=== PATIENT | female | born 1935 | race Caucasian/White ===

== ENCOUNTER → 2016-09-09 | Outpatient (CLI) | payer MEDICARE, OTHER ==
[~2016-09-09] MED LIST: ALBU8.5H2 IH; ALLERGY SHOTS; ASCO-262 PO; ASCO500T20 PO; ASP81TEC PO; ASPI-992 PO; AZIT500T5 PO; CALC-404 PO; CALC-654 PO; CEFD300C3 PO; CETI10CA PO; CHOL10007 PO; DOXY100C2 PO; FLUT16SP22 NS; IBUP-30 PO; LVT.05T PO; MULT-1029 PO; OMEG1CAP51 PO; OMEP20TA7 PO; ONDA8TAB9 PO; PNT40TEC PO; PRD50T PO; PROP10DR9 OU; TETR15DR82 OP; TIOT18CA IH; VITA1CAP PO; VITAMIN C PO; [UNRECOGNIZED DRUG - OTHER] PO; [UNRECOGNIZED DRUG - OTHER] SC
--- OUTSIDE RECORDS SUMMARY | 2016-09-09 13:42 | XMS REPORT | Continuity of Care Document ---
Author Author [facility] Organization [facility] Address Unknown Phone Unavailable Care Team Providers Care Director Economic Name Role Phone АННА GUNTER MD PCP Insurance Providers Payer Name Policy Number Subscriber Name Relationship Wps Medicare [id number] [place] 20 Self / Same As Patient Advance Directives Directive Response Recorded Date/Time Advance Directives Yes 07/04/16 5:35pm Health Care Power of Public Health Clinical Nurse Specialist Y SR TOYIN MALIK [facility] 07/04 5:35pm Organ Donor Yes 07/04/16 5:35pm Resuscitation Status Full Code 07/04/16 5:35pm Chief Complaint and Reason for Visit Chief Complaint GASTROENTERITIS,WEAKNESS Reason for Visit Gastroenteritis General weakness Problems Active Problems Medical Problem Onset Date Status Gastroenteritis Unknown Acute General weakness Unknown Acute Medications Current Home Medications Medication Dose Units Route Directions Days/Qty Instructions Start Date Levothyroxine Sodium 50 Mcg 50 Mcg Oral Daily 03/12/12 Mu-Vits-Min Th/Lycopene/Lutein 1 Each 1 Tab Oral Daily 03/12/12 [place]-3 Fatty Acids/Fish Oil 1 Each 1,000 Mg Oral Daily 03/20/12 Cetirizine Hcl 10 Mg 10 Mg Oral Daily as needed for Allergies Vitamin B Complex 1 Each 1 Cap Oral Daily 07/04/16 Ascorbate Calcium 500 Mg 500 Mg Oral Daily 07/06/16 Propylene Glycol 10 Ml 1 Drop Each Eye Every 4HRS as needed for Dry Eyes 07/06/16 Aspirin/Acetaminophen/Caffeine 1 Each 1 Tab Oral Twice A Day as needed for Pain 07/06/16 Cholecalciferol (Vitamin D3) 1,000 Unit 1,000 Unit Oral Daily Calcium Carbonate/Vitamin D3 1 Each 1 Tab Oral Daily 07/06/16 Fluticasone Propionate 16 Gm 2 Sprays Nasal Daily 07/06/16 Cefdinir (Omnicef) 300 Mg 300 Mg Oral Twice A Day 10 07/08/16 Omeprazole 20 Mg 20 Mg Oral Daily 30 07/08/16 Azithromycin 500 Mg 500 Mg Oral Daily 5 07/08/16 Ondansetron 8 Mg 8 Mg Oral Every 6 Hours as needed for Nausea 20 07/08 Past Home Medications Medication Directions Ordered Status Albuterol 8.5 Gm Hfa.aer.ad, 8.5 Gm Inhalation Every 4HRS as needed 03/12/12 Discontinued Ascorbic Acid 500 Mg Tablet, 500 Mg Oral Daily 03/12/12 Discontinued [Allergy Shots] , 03/12/12 Discontinued Doxycycline Hyclate (Vibramycin) 100 Mg Capsule, 1 Each Oral Twice A Day 08/22 Discontinued Prednisone 50 Mg Tab, 50 Mg Oral Daily 03/12/12 Discontinued [Allergenie Injection] , 2 Unit Subcutaneously 2SHOTS Every 2 Weeks 03/20/12 Discontinued [Vitamin C & D3] 1000 Mg , 1000 Mg Oral Daily 03/20/12 Discontinued Calcium Carbonate/Vitamin D3 1 Each Tablet, 500 Mg Oral Daily 03/20/12 Discontinued Tetrahydrozoline Hcl 15 Ml Drops, 1 Drop Ophthalmic Daily 03/20/12 Discontinued Aspirin 81 Mg Tabec, 81 Mg Oral Daily as needed for Prn 03/27/12 Discontinued Pantoprazole Sod 40 Mg Tab, 40 Mg Oral Daily 03/27/12 Discontinued Tiotropium [place] 18 Mcg Cap.w.dev, 1 Inhaler Inhalation Daily 03/27/12 Discontinued Ibuprofen 200 Mg Tablet, 200 Mg Oral Daily as needed for Pain 07/04/16 Discontinued Social History Social History Problem Response Recorded Date/Time Alcohol Use Denies Use 07/04/2016 5:35pm Recreational Drug Use No 07/04/2016 5:35pm Recent Foreign Travel No 07/04/2016 5:35pm Recent Infectious Disease Exposure No 07/04/2016 5:35pm Smoking Status Never a Smoker 07/04/2016 5:35pm Recent Hopitalizations Y PNEUMONIAS 07/04/2016 5:35pm Query Response Start Date Stop Date Smoking Status Never a Smoker Hospital Discharge Instructions Patient Instructions Physician Instructions New, Converted or Re-Newed RX: Transmitted to Pharmacy Goal/Follow Up Appt: Dr Pineda next week for release to work Discharge Diet: Soft Diet Care Plan Goal:: Dr Pineda next week for release to work Plan of Care Discharge Date 07/08/16 12:20pm Disposition 01 HOME, SELF-CARE Instructions/Education Provided Nausea and Vomiting, Adult Forms Provided PDI Medical Prescriptions See Medication Section Referrals (Unspecified) - Reason(s) for Referral: FOLLOW-UP WITH DR. CASTRO'S OFFICE ON August AT 1:30 P.M. FOLLOW-UP WITH DR. PINEDA'S OFFICE ON July AT 2:00 P.M. MAKE SURE TO BRING INSURANCE CARDS AND PHOTO I.D. Care Plan and Goals See Discharge Instructions Section Functional Status Query Response Date Recorded Patient Orientation Person Place Time Situation Eyes Open July 09, 2016 7:31am Comprehension Ability Understands Concepts July 07, 2016 9:00am Allergies, Adverse Reactions, Alerts No known allergies. Immunizations No immunization records. Vital Signs Acute Vital Signs Vital Response Date/Time Temperature (Fahrenheit) 97.2 degrees F (97.6 - 99.5) 07/08/2016 11:56am Temperature (Calculated Celsius) 36.37892 degrees C (36.4 - 37.5) 07/08/2016 8:00am Temperature Source Tympanic 07/08/2016 11:56am Pulse Rate (adult) 78 bpm (60 - 90) 07/08/2016 11:56am Respiratory Rate 20 bpm (12 - 24) 07/08/2016 11:56am O2 Sat by Pulse Oximetry 93 % (88 - 100) 07/08/2016 11:56am Blood Pressure 117/76 mm Hg 07/08/2016 11:56am Blood Pressure Mean 90 mm Hg 07/08/2016 8:00am Pain Numeric Pain Scale 0-No Pain 07/08/2016 11:56am Height (Feet) 5 feet 07/04/2016 5:44pm Height (Inches) 3.00 inches 07/04/2016 5:44pm Height (Calculated Centimeters) 160.761559 cm 07/04/2016 5:44pm Weight (Pounds) 130 pounds 07/04/2016 5:44pm Weight (Ounces) 4.0 oz 07/04/2016 5:44pm Weight (Calculated Grams) 62619.41 gm 07/04/2016 5:44pm Weight (Calculated Kilograms) 59.166326 kilograms 07/04/2016 5:44pm Calculated BMI 23.1 07/04/2016 5:44pm Capillary Refill Capillary Refill Less Than 3 Seconds 07/07/2016 9:00am Results Laboratory Results Test Name Result Units Flags Reference Collection Date/Time Result Date/ Time Comments White Blood Count 6.2 10^3/uL 4.3-11.0 07/07/2016 5:00am 07/07/2016 6: 14am Red Blood Count 4.39 10^6/uL 4.35-5.85 07/07/2016 5:00am 07/07/2016 6: 14am Hemoglobin 14.1 G/DL 11.5-16.0 07/07/2016 5:00am 07/07/2016 6:14am Hematocrit 42 % 35-52 07/07/2016 5:00am 07/07/2016 6:14am Mean Corpuscular Volume 95 FL 80-99 07/07/2016 5:00am 07/07/2016 6: 14am Mean Corpuscular Hemoglobin 32 PG 25-34 07/07/2016 5:00am 07/07/2016 6: 14am Mean Corpuscular Hemoglobin Concent 34 G/DL 32-36 07/07/2016 5:00am 6:14am Red Cell Distribution Width 12.7 % 10.0-14.5 07/07/2016 5:00am 2015 6:14am Platelet Count 218 10^3/uL 130-400 07/07/2016 5:00am 07/07/2016 6:14am Mean Platelet Volume 11.1 FL H 7.4-10.4 07/07/2016 5:00am 07/07/2016 6: 14am Neutrophils (%) (Auto) 57 % 42-75 07/07/2016 5:00am 07/07/2016 6:14am Lymphocytes (%) (Auto) 23 % 12-44 07/07/2016 5:00am 07/07/2016 6:14am Monocytes (%) (Auto) 12 % 0-12 07/07/2016 5:00am 07/07/2016 6:14am Eosinophils (%) (Auto) 7 % 0-10 07/07/2016 5:00am 07/07/2016 6:14am Basophils (%) (Auto) 1 % 0-10 07/07/2016 5:00am 07/07/2016 6:14am Neutrophils # (Auto) 3.5 X 10^3 1.8-7.8 07/07/2016 5:00am 07/07/2016 6: 14am Lymphocytes # (Auto) 1.5 X 10^3 1.0-4.0 07/07/2016 5:00am 07/07/2016 6: 14am Monocytes # (Auto) 0.7 X 10^3 0.0-1.0 07/07/2016 5:00am 07/07/2016 6: 14am Eosinophils # (Auto) 0.4 10^3/uL H 0.0-0.3 07/07/2016 5:00am 07/07/2016 6 :14am Basophils # (Auto) 0.0 10^3/uL 0.0-0.1 07/07/2016 5:00am 07/07/2016 6: 14am Neutrophils % (Manual) 85 % 07/04/2016 2:05pm 07/04/2016 2:49pm Band Neutrophils 4 % 07/04/2016 2:05pm 07/04/2016 2:49pm Lymphocytes % (Manual) 10 % 07/04/2016 2:05pm 07/04/2016 2:49pm Eosinophils % (Manual) 1 % 07/04/2016 2:05pm 07/04/2016 2:49pm Blood Morphology Comment NORMAL 07/04/2016 2:05pm 07/04/2016 2: 49pm Urine Color YELLOW 07/05/2016 8:15am 07/05/2016 8:36am Urine Clarity CLEAR 07/05/2016 8:15am 07/05/2016 8:36am Urine pH 6.5 5-9 07/05/2016 8:15am 07/05/2016 8:36am Urine Specific Ellis 1.005 * 1.016-1.022 07/05/2016 8:15am 2015 8:36am Urine Protein NEGATIVE NEGATIVE 07/05/2016 8:15am 07/05/2016 8:36am Urine Glucose (UA) NEGATIVE NEGATIVE 07/05/2016 8:15am 07/05/2016 8: 36am Urine RBC (Auto) NEGATIVE NEGATIVE 07/05/2016 8:15am 07/05/2016 8: 36am Urine Ketones NEGATIVE NEGATIVE 07/05/2016 8:15am 07/05/2016 8:36am Urine Nitrite NEGATIVE NEGATIVE 07/05/2016 8:15am 07/05/2016 8:36am Urine Bilirubin NEGATIVE NEGATIVE 07/05/2016 8:15am 07/05/2016 8: 36am Urine Urobilinogen NORMAL MG/DL NORMAL 07/05/2016 8:15am 07/05/2016 8: 36am Urine Leukocyte Esterase NEGATIVE NEGATIVE 07/05/2016 8:15am 2015 8:36am Urine RBC RARE /HPF 07/05/2016 8:15am 07/05/2016 8:36am Urine WBC NONE /HPF 07/05/2016 8:15am 07/05/2016 8:36am Urine Bacteria NEGATIVE /HPF 07/05/2016 8:15am 07/05/2016 8:36am Urine Squamous Epithelial Cells NONE /HPF 07/05/2016 8:15am 2015 8:36am Urine Crystals NONE /LPF 07/05/2016 8:15am 07/05/2016 8:36am Urine Casts NONE /LPF 07/05/2016 8:15am 07/05/2016 8:36am Urine Mucus NEGATIVE /LPF 07/05/2016 8:15am 07/05/2016 8:36am Urine Culture Indicated NO 07/05/2016 8:15am 07/05/2016 8:36am Sodium Level 136 MMOL/L 135-145 07/07/2016 5:00am 07/07/2016 7:05am Potassium Level 4.4 MMOL/L 3.6-5.0 07/07/2016 5:00am 07/07/2016 7:05am Chloride Level 103 MMOL/L 98-107 07/07/2016 5:00am 07/07/2016 7:05am Carbon Dioxide Level 24 MMOL/L 21-32 07/07/2016 5:00am 07/07/2016 7: 05am Anion Gap 9 MMOL/L 5-14 07/07/2016 5:00am 07/07/2016 7:05am Blood Urea Nitrogen 5 MG/DL L 7-18 07/07/2016 5:00am 07/07/2016 7:05am Creatinine 0.70 MG/DL 0.60-1.30 07/07/2016 5:00am 07/07/2016 7:05am BUN/Creatinine Ratio 7 07/07/2016 5:00am 07/07/2016 7:05am Estimat Glomerular Filtration Rate > 60 07/07/2016 5:00am 2015 7:05am GFR INTERPRETIVE DATA UNITS FOR ESTIMATED GFR (eGFR): mL/min/1.73 M2 REFERENCE RANGE FOR ESTIMATED GFR (eGFR) eGFR NORMAL eGFR >60 MODERATELY DECREASED eGFR 30-59 SEVERLY DECREASED eGFR 15-29 KIDNEY FAILURE <15 (OR DIALYSIS) Glucose Level 88 MG/DL 70-105 07/07/2016 5:00am 07/07/2016 7:05am Calcium Level 8.8 MG/DL 8.5-10.1 07/07/2016 5:00am 07/07/2016 7:05am Total Bilirubin 0.3 MG/DL 0.1-1.0 07/07/2016 5:00am 07/07/2016 7:05am Alkaline Phosphatase 69 U/L 40-136 07/07/2016 5:00am 07/07/2016 7:05am Aspartate Amino Transf (AST/SGOT) 28 U/L 5-34 07/07/2016 5:00am 2015 7:05am Alanine Aminotransferase (ALT/SGPT) 21 U/L 0-55 07/07/2016 5:00am 07/07 7:05am B-Type Natriuretic Peptide 55.6 PG/ML <100.0 07/05/2016 9:40am 2015 10:18am Total Protein 5.9 G/DL L 6.4-8.2 07/07/2016 5:00am 07/07/2016 7:05am Albumin 3.7 G/DL 3.2-4.5 07/07/2016 5:00am 07/07/2016 7:05am Lactic Acid Level 1.1 MMOL/L 0.5-2.0 07/04/2016 2:05pm 07/04/2016 2: 34pm Microbiology Results Procedure Source Result Collection Date/Time Result Date/Time Blood Culture Peripheral, Right Wrist No growth 07/04/2016 2:05pm 2015 2:09pm Blood Culture Peripheral, Lt Hand No growth 07/04/2016 2:00pm 07/05/2016 2: 09pm Procedures No known history of procedures. Encounters Encounter Location Arrival/Admit Date Discharge/Depart Date Attending Provider Discharged Inpatient [facility] 07/04/16 5:35pm 12:20pm BRANDO WAY MD Recent Diagnosis Gastroenteritis General weakness
--- NOTE | 2016-09-09 16:03 | Diagnostic Imaging Report ---
PROCEDURE: CT chest without contrast. TECHNIQUE: Multiple contiguous axial images were obtained through the chest without the use of intravenous contrast. INDICATION: Shortness of breath with history of pneumonia. Exam compared 07/05/2016. 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 This is a chronic finding. A few scattered foci of airspace like density in the left upper lobe, right lower lobe laterally and both posterior sulci present on the previous have resolved in the interim. An acute infiltrate or adverse change is not found. No lung mass. No evidence for thoracic adenopathy. No effusion. No chest wall pathology. Visualized upper abdomen unremarkable. IMPRESSION: Chronic changes involve lingula and right middle lobe stable, multifocal patchy infiltrates present on the previous exam have resolved. No acute finding or adverse change. Dictated by: Dictated on workstation # [id number]
== END ==
LOC: RAD 13:38
PROVIDERS: ATTEND Nurse Practitioner Family
DX: R06.00 Dyspnea, unspecified (principal)
CPT/HCPCS: 71250

== ENCOUNTER 2016-10-05 19:55 | Outpatient (CLI) | payer MEDICARE, OTHER | END 2016-10-06 06:05 | disposition home or self-care (01) | LOC: SLEEP 19:55 | PROVIDERS: ATTEND Nurse Practitioner Family | DX: G47.10 Hypersomnia, unspecified (principal); G47.50 Parasomnia, unspecified | CPT/HCPCS: 95810 ==

== ENCOUNTER → 2016-11-05 | Outpatient (CLI) | payer MEDICARE, OTHER ==
[~2016-11-05] MED LIST changes: +RT-ALBUTEROL SULF 2.5 MG/3 ML PRE-MIX VIAL IH ONE
== END ==
LOC: RT 15:29
PROVIDERS: ATTEND Nurse Practitioner Family
DX: J47.9 Bronchiectasis, uncomplicated (principal); R06.00 Dyspnea, unspecified
CPT/HCPCS: 94060; 94640; 94726; 94729

== ENCOUNTER 2017-07-24 10:31 | Emergency (ER) | payer MEDICARE, OTHER ==
[~2017-07-24] VITALS: Ht 160 cm; Wt 59.4 kg
[~2017-07-24 10:31] MED LIST changes: -RT-ALBUTEROL SULF 2.5 MG/3 ML PRE-MIX VIAL IH ONE
--- OUTSIDE RECORDS SUMMARY | 2017-07-24 10:36 | XMS REPORT ---
Author Author VINNIE GREWAL [facility] Address [address] [place] [address] Care Team Providers Care Geoscientist Name Role Phone VINNIE GREWAL Unavailable PROBLEMS Type Condition ICD9-CM Code [id number] Code Onset Dates Condition Status SNOMED Code Problem Allergic rhinitis J30.9 Active 78540587 Problem Acquired hypothyroidism E03.9 Active 106681920 Problem Hearing difficulty of left ear H91.92 Active 207291672 Problem Allergic rhinitis, unspecified allergic rhinitis type J30.9 Active 22193676 Problem Urinary incontinence in female R32 Active 694774264 ALLERGIES No Information SOCIAL HISTORY Never Assessed PLAN OF CARE VITAL SIGNS MEDICATIONS Unknown Medications RESULTS No Results PROCEDURES Procedure Date Ordered Result Body Site IMMUNOTHERAPY INJECTIONS November 22, 2016 IMMUNIZATIONS No Known Immunizations MEDICAL (GENERAL) HISTORY Type Description Date Medical History thyroid Medical History allergies Medical History hot flashes Medical History ruptured ovarian cyst Surgical History tonsillectomy Surgical History hysterectomy 1986 Surgical History ovarian cyst Hospitalization History surgeries Hospitalization History pneumonia and dehydration 07/04/2016
--- OUTSIDE RECORDS SUMMARY | 2017-07-24 10:36 | XMS REPORT ---
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 40335054 Problem Acute upper respiratory infections of unspecified site 465.9 Active 49235820 Problem Pneumonia, organism unspecified 486 Active 834854771 Problem ZOSTAVAX DX V05.8 Active 09406497 Problem Need for prophylactic vaccination and inoculation, Influenza V04.81 Active 994442522 Problem Cough 786.2 Active 04871094 Problem Allergic rhinitis, unspecified allergic rhinitis type J30.9 Active 41441621 Problem Urinary incontinence in female R32 Active 796436876 Problem Allergic rhinitis J30.9 Active 24558940 Problem Allergic rhinitis, cause unspecified 477.9 Active 06137577 Problem Hearing difficulty of left ear H91.92 Active 389149268 Problem Memory loss R41.3 Active 80148005 ALLERGIES Unknown Allergies SOCIAL HISTORY No smoking Hx information available PLAN OF CARE VITAL SIGNS MEDICATIONS Unknown Medications RESULTS No Results PROCEDURES Procedure Date Ordered Related Diagnosis Body Site IMMUNOTHERAPY INJECTIONS Jul 26, 2016 IMMUNIZATIONS No Known Immunizations
--- OUTSIDE RECORDS SUMMARY | 2017-07-24 10:36 | XMS REPORT ---
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 50828879 Problem Acute upper respiratory infections of unspecified site 465.9 Active 99610309 Problem Pneumonia, organism unspecified 486 Active 673580694 Problem ZOSTAVAX DX V05.8 Active 49881317 Problem Need for prophylactic vaccination and inoculation, Influenza V04.81 Active 839579552 Problem Cough 786.2 Active 13884254 Problem Allergic rhinitis, unspecified allergic rhinitis type J30.9 Active 02184226 Problem Urinary incontinence in female R32 Active 316694198 Problem Allergic rhinitis J30.9 Active 01825305 Problem Allergic rhinitis, cause unspecified 477.9 Active 54242102 Problem Hearing difficulty of left ear H91.92 Active 638720972 Problem Memory loss R41.3 Active 01329524 ALLERGIES Substance Reaction Event Type Date Status cat/dog dander/tree/dust Unknown Non Drug Allergy Jul, Active SOCIAL HISTORY No smoking Hx information available PLAN OF CARE Activity Details Follow Up prn Reason: VITAL SIGNS Height 63 in 2016-07-29 Weight 128.0 lbs 2016-07-29 Temperature 97.9 degrees Fahrenheit 2016-07-29 Heart Rate 78 bpm 2016-07-29 Respiratory Rate 20 2016-07-29 Oximetry 97 % 2016-07-29 BMI 22.67 kg/m2 2016-07-29 Blood pressure systolic 124 mmHg 2016-07-29 Blood pressure diastolic 78 mmHg 2016-07-29 MEDICATIONS Medication Instructions Dosage Frequency Start Date End Date Duration Status Meloxicam 7.5 MG Orally Once a day 1 tablet 24h Jul, Jul, 5 days Active PredniSONE 20 MG Orally Once a day 2 tablet 24h Jul, Jul, 5 days Active levothyroxine 25 mcg take 1 tablet (25 mcg) by oral route once daily Feb, Active Fish Oil 1000 MG Orally Once a day 1 capsule 24h Active Centrum Silver Feb, Active Flonase Allergy Relief 50 MCG/ACT Nasally Once a day 1 spray in each nostril 24h Active Tessalon Perles 100 mg 1 capsule by Oral route 3 times per day PRN Sep, Active Omeprazole 20 MG Orally Once a day 2 capsules 24h Active Vitamin B Complex Active Vitamin C 500 MG Active RESULTS Name Result Date Reference Range Xray : Chest (IN HOUSE) 2016-07-29 PROCEDURES Procedure Date Ordered Related Diagnosis Body Site MEASURE BLOOD OXYGEN LEVEL Jul 29, 2016 CHEST X-RAY Jul 29, 2016 Office Visit, Est Pt., Level 3 Jul 29, 2016 [facility] VISIT ESTABLISHED PATIENT Jul 29, 2016 IMMUNIZATIONS No Known Immunizations
--- OUTSIDE RECORDS SUMMARY | 2017-07-24 10:36 | XMS REPORT ---
Author Author ISIDORO RAZA Organization [facility] Address [address] [place] [address] Care Team Providers Care Senior Analyst Developer Name Role Phone ISIDRA RAZAA Unavailable PROBLEMS Type Condition ICD9-CM Code [id number] Code Onset Dates Condition Status SNOMED Code Problem Acute upper respiratory infections of unspecified site 465.9 Active 99433978 Problem Allergic rhinitis, cause unspecified 477.9 Active 27108448 Problem ZOSTAVAX DX V05.8 Active 23347902 Problem Cough 786.2 Active 76756282 Problem Need for prophylactic vaccination and inoculation, Influenza V04.81 Active 478527258 Problem Pneumonia, organism unspecified 486 Active 610550312 Problem Allergic rhinitis, unspecified allergic rhinitis type J30.9 Active 13864908 Problem Memory loss R41.3 Active 75893552 Problem Allergic rhinitis J30.9 Active 80823701 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 60396565 Problem Hearing difficulty of left ear H91.92 Active 516203004 Problem Urinary incontinence in female R32 Active 382120055 ALLERGIES Substance Reaction Event Type Date Status cat/dog dander/tree/dust Unknown Non Drug Allergy Jun, Active SOCIAL HISTORY No smoking Hx information available PLAN OF CARE Activity Details Follow Up prn Reason:emelia VITAL SIGNS Blood pressure systolic 124 mmHg 2016-06-24 Blood pressure diastolic 70 mmHg 2016-06-24 MEDICATIONS Medication Instructions Dosage Frequency Start Date End Date Duration Status Zyrtec Allergy 10 MG Orally Once a day 1 tablet as needed 24h Active Vitamin B Complex Active Fish Oil 1000 MG Orally Once a day 1 capsule 24h Active Centrum Silver Feb, Active levothyroxine 25 mcg take 1 tablet (25 mcg) by oral route once daily Feb, Active Vitamin C 500 MG Active RESULTS No Results PROCEDURES Procedure Date Ordered Related Diagnosis Body Site BITEWINGS - FOUR FILMS Jun 24, 2016 Periodontal maint procedures Jun 24, 2016 Billing Notes on claim Jun 24, 2016 TOPICAL FLUORIDE VARNISH Jun 24, 2016 [employer] Employee/Board adjustment Jun 24, 2016 IMMUNIZATIONS No Known Immunizations
--- OUTSIDE RECORDS SUMMARY | 2017-07-24 10:37 | XMS REPORT ---
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
--- OUTSIDE RECORDS SUMMARY | 2017-07-24 10:37 | XMS REPORT ---
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 88398688 Problem Acute upper respiratory infections of unspecified site 465.9 Active 91362767 Problem Pneumonia, organism unspecified 486 Active 774878677 Problem ZOSTAVAX DX V05.8 Active 26031967 Problem Need for prophylactic vaccination and inoculation, Influenza V04.81 Active 926789339 Problem Cough 786.2 Active 97639455 Problem Allergic rhinitis, unspecified allergic rhinitis type J30.9 Active 84281367 Problem Urinary incontinence in female R32 Active 004288211 Problem Allergic rhinitis J30.9 Active 21262445 Problem Allergic rhinitis, cause unspecified 477.9 Active 60420195 Problem Hearing difficulty of left ear H91.92 Active 004481363 Problem Memory loss R41.3 Active 19417890 ALLERGIES Unknown Allergies SOCIAL HISTORY No smoking Hx information available PLAN OF CARE VITAL SIGNS MEDICATIONS Unknown Medications RESULTS No Results PROCEDURES Procedure Date Ordered Related Diagnosis Body Site IMMUNOTHERAPY INJECTIONS Aug 16, 2016 IMMUNIZATIONS No Known Immunizations
--- OUTSIDE RECORDS SUMMARY | 2017-07-24 10:37 | XMS REPORT ---
Author Author VINNIE GREWAL [facility] Address [address] [place] [address] Care Team Providers Care Boom Boss Name Role Phone VINNIE GREWAL Unavailable PROBLEMS Type Condition ICD9-CM Code ATZ49-TA Code Onset Dates Condition Status SNOMED Code Problem Acquired hypothyroidism E03.9 Active 383798270 Problem Allergic rhinitis, unspecified allergic rhinitis type J30.9 Active 17482487 Problem Urinary incontinence in female R32 Active 968089068 Problem Hearing difficulty of left ear H91.92 Active 728873991 ALLERGIES No Information SOCIAL HISTORY Never Assessed PLAN OF CARE VITAL SIGNS MEDICATIONS No Known Medications RESULTS No Results PROCEDURES Procedure Date Ordered Result Body Site IMMUNOTHERAPY, 2 OR MORE INJECTIONS 2016-09-20 N/A IMMUNOTHERAPY INJECTIONS September 20, 2016 IMMUNIZATIONS No Known Immunizations MEDICAL (GENERAL) HISTORY Type Description Date Medical History thyroid Medical History allergies Medical History hot flashes Medical History ruptured ovarian cyst Surgical History tonsillectomy Surgical History hysterectomy 1986 Surgical History ovarian cyst Hospitalization History surgeries Hospitalization History pneumonia and dehydration 07/04/2016
--- OUTSIDE RECORDS SUMMARY | 2017-07-24 10:37 | XMS REPORT ---
Author Author LORENA HAYES [facility] eClinicalWorks Address Unknown Phone Unavailable Care Team Providers Care Tool And Gauge Inspector Name Role Phone LORENA HAYES CP Unavailable Allergies, Adverse Reactions, Alerts Substance Reaction Event Type N.K.D.A. 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 Problem Need for prophylactic vaccination and inoculation, Influenza V04.81 Active Problem Cough 786.2 Active Problem Acute upper respiratory infections of unspecified site 465.9 Active Problem Pneumonia, organism unspecified 486 Active Medications Medication Code System Code Instructions Start Date End Date Status Dosage Vitamin B Complex [facility] [address] Orally not defined Fish Oil [facility] [address]-57 1000 MG Orally Once a day 1 capsule levothyroxine [facility] 0 25 mcg Feb 29, 2012 take 1 tablet (25 mcg) by oral route once daily Vitamin C [facility] [address] 500 MG Orally not defined PredniSONE [facility] [address]-50 20 MG Orally Once a day Apr 16, 2016 Apr 21, 2016 2 tablet Zyrtec Allergy [facility] [address]-35 10 MG Orally Once a day 1 tablet as needed Centrum Silver [facility] [address]-61 Feb 29, 2012 not defined Azithromycin [facility] [address]-35 250 MG Orally Once a day Apr 16, 2016 Apr 21, 2016 2 tablets on the first day, then 1 tablet daily for 4 days Procedures Procedure Coding System Code Date Office Visit, Est Pt., Level 3 CPT-4 99959 Apr 16, 2016 [facility] VISIT ESTABLISHED PATIENT CPT-4 G0467 Apr 16, 2016 Vital Signs Date/Time: Apr 16, 2016 Cardiac Monitoring Heart Rate 80 bpm Weight 129.2 lbs Height 63 in BMI 22.88 Index Blood Pressure Diastolic 74 mmHg Blood Pressure Systolic 128 mmHg Results No Known Results Summary Purpose eClinicalWorks Submission
--- OUTSIDE RECORDS SUMMARY | 2017-07-24 10:37 | XMS REPORT ---
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 07692824 Problem Acute upper respiratory infections of unspecified site 465.9 Active 14693883 Problem Pneumonia, organism unspecified 486 Active 540592364 Problem ZOSTAVAX DX V05.8 Active 05210246 Problem Need for prophylactic vaccination and inoculation, Influenza V04.81 Active 809434985 Problem Cough 786.2 Active 63816172 Problem Allergic rhinitis, unspecified allergic rhinitis type J30.9 Active 21780115 Problem Urinary incontinence in female R32 Active 698481897 Problem Allergic rhinitis J30.9 Active 61904698 Problem Allergic rhinitis, cause unspecified 477.9 Active 14928536 Problem Hearing difficulty of left ear H91.92 Active 052080138 Problem Memory loss R41.3 Active 78049339 ALLERGIES Unknown Allergies SOCIAL HISTORY No smoking Hx information available PLAN OF CARE VITAL SIGNS MEDICATIONS Unknown Medications RESULTS No Results PROCEDURES Procedure Date Ordered Related Diagnosis Body Site IMMUNOTHERAPY, 2 OR MORE INJECTIONS 2016-04-27 N/A IMMUNOTHERAPY INJECTIONS Apr 27, 2016 IMMUNIZATIONS No Known Immunizations
--- OUTSIDE RECORDS SUMMARY | 2017-07-24 10:37 | XMS REPORT ---
Author EDGAR Gannon Organization [employer] Address Unknown Phone Unavailable Care Team Providers Care Signal Technician Name Role Phone EDGAR NGO CP Unavailable Allergies, Adverse Reactions, Alerts Substance Reaction Event Type N.K.D.A. 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 [address] Orally not defined Flonase Allergy Relief [facility] [address]-43 50 MCG/ACT Nasally Once a day 1 spray in each nostril Centrum Silver [facility] [address]-17 Feb 29, 2012 not defined Vitamin C [facility] [address] 500 MG Orally not defined PredniSONE [facility] [address]-21 20 mg Orally Once a day November 04, 2015November 2 tablets Zyrtec Allergy [facility] [address]-50 10 MG Orally Once a day 1 tablet as needed Fish Oil [facility] [address]-17 1000 MG Orally Once a day 1 capsule levothyroxine [place] 0 25 mcg Feb 29, 2012 take 1 tablet (25 mcg) by oral route once daily Procedures Procedure Coding System Code Date Office Visit, Est Pt., Level 3 CPT-4 04264 November 04, 2015 [facility] VISIT ESTABLISHED PATIENT CPT-4 G0467 November 04, 2015 Vital Signs Date/Time: November 04, 2015 Temperature 98.0 F Weight 132.2 lbs Height 63 in BMI 23.42 Index Blood Pressure Diastolic 72 mmHg Blood Pressure Systolic 112 mmHg Cardiac Monitoring Heart Rate 80 bpm Results No Known Results Summary Purpose eClinicalWorks Submission
--- OUTSIDE RECORDS SUMMARY | 2017-07-24 10:37 | XMS REPORT ---
Author Author VINNIE GREWAL [facility] Address [address] [place] [address] Care Team Providers Care Flow Specialist Name Role Phone VINNIE GREWAL Unavailable PROBLEMS Type Condition ICD9-CM Code QIU74-HQ Code Onset Dates Condition Status SNOMED Code Problem Allergic rhinitis J30.9 Active 91019146 Problem Acquired hypothyroidism E03.9 Active 708172492 Problem Hearing difficulty of left ear H91.92 Active 056795806 Problem Allergic rhinitis, unspecified allergic rhinitis type J30.9 Active 69241230 Problem Urinary incontinence in female R32 Active 855917196 ALLERGIES No Information SOCIAL HISTORY Never Assessed PLAN OF CARE VITAL SIGNS MEDICATIONS Unknown Medications RESULTS No Results PROCEDURES Procedure Date Ordered Result Body Site IMMUNOTHERAPY INJECTIONS December 15, 2016 IMMUNIZATIONS No Known Immunizations MEDICAL (GENERAL) HISTORY Type Description Date Medical History thyroid Medical History allergies Medical History hot flashes Medical History ruptured ovarian cyst Surgical History tonsillectomy Surgical History hysterectomy 1986 Surgical History ovarian cyst Hospitalization History surgeries Hospitalization History pneumonia and dehydration 07/04/2016
--- OUTSIDE RECORDS SUMMARY | 2017-07-24 10:37 | XMS REPORT ---
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
--- OUTSIDE RECORDS SUMMARY | 2017-07-24 10:37 | XMS REPORT ---
Author Author VINNIE GREWAL [facility] Address [address] [place] [address] Care Team Providers Care Shift Superintendent Caustic Cresylate Name Role Phone VINNIE GREWAL Unavailable PROBLEMS Type Condition ICD9-CM Code WRJ62-DI Code Onset Dates Condition Status SNOMED Code Problem Allergic rhinitis J30.9 Active 55975294 Problem Acquired hypothyroidism E03.9 Active 002002079 Problem Hearing difficulty of left ear H91.92 Active 374092238 Problem Allergic rhinitis, unspecified allergic rhinitis type J30.9 Active 84475572 Problem Urinary incontinence in female R32 Active 411478444 ALLERGIES No Information SOCIAL HISTORY Never Assessed PLAN OF CARE VITAL SIGNS MEDICATIONS Unknown Medications RESULTS No Results PROCEDURES Procedure Date Ordered Result Body Site IMMUNOTHERAPY INJECTIONS December 07, 2016 IMMUNIZATIONS No Known Immunizations MEDICAL (GENERAL) HISTORY Type Description Date Medical History thyroid Medical History allergies Medical History hot flashes Medical History ruptured ovarian cyst Surgical History tonsillectomy Surgical History hysterectomy 1986 Surgical History ovarian cyst Hospitalization History surgeries Hospitalization History pneumonia and dehydration 07/04/2016
--- OUTSIDE RECORDS SUMMARY | 2017-07-24 10:37 | XMS REPORT ---
Author Author SIGIFREDO ROJAS [facility] Address [address] [place] [address] Care Team Providers Care Traffic Signal Mechanic Name Role Phone SIGIFREDO ROJAS Unavailable PROBLEMS Type Condition ICD9-CM Code DJB91-LE Code Onset Dates Condition Status SNOMED Code Problem Acquired hypothyroidism E03.9 Active 915724997 Problem Allergic rhinitis, unspecified allergic rhinitis type J30.9 Active 81446410 Problem Urinary incontinence in female R32 Active 181665756 Problem Hearing difficulty of left ear H91.92 Active 582823287 ALLERGIES No Information SOCIAL HISTORY Never Assessed PLAN OF CARE VITAL SIGNS MEDICATIONS No Known Medications RESULTS No Results PROCEDURES Procedure Date Ordered Result Body Site IMMUNOTHERAPY, 2 OR MORE INJECTIONS 2016-09-13 N/A IMMUNOTHERAPY INJECTIONS September 13, 2016 IMMUNIZATIONS No Known Immunizations MEDICAL (GENERAL) HISTORY Type Description Date Medical History thyroid Medical History allergies Medical History hot flashes Medical History ruptured ovarian cyst Surgical History tonsillectomy Surgical History hysterectomy 1986 Surgical History ovarian cyst Hospitalization History surgeries Hospitalization History pneumonia and dehydration 07/04/2016
--- OUTSIDE RECORDS SUMMARY | 2017-07-24 10:37 | XMS REPORT ---
Author Author LORENA HAYES Organization [facility] Address [address] [place] [address] Care Team Providers Care Almond Paste Molder Name Role Phone LORENA HAYES Unavailable PROBLEMS Type Condition ICD9-CM Code KQA77-ET Code Onset Dates Condition Status SNOMED Code Problem Allergic rhinitis J30.9 Active 64128066 Problem Acquired hypothyroidism E03.9 Active 440750089 Problem Hearing difficulty of left ear H91.92 Active 654704513 Problem Allergic rhinitis, unspecified allergic rhinitis type J30.9 Active 80821190 Problem Urinary incontinence in female R32 Active 552066402 ALLERGIES No Information SOCIAL HISTORY Never Assessed PLAN OF CARE VITAL SIGNS MEDICATIONS Unknown Medications RESULTS No Results PROCEDURES Procedure Date Ordered Result Body Site IMMUNOTHERAPY INJECTIONS November 29, 2016 IMMUNIZATIONS No Known Immunizations MEDICAL (GENERAL) HISTORY Type Description Date Medical History thyroid Medical History allergies Medical History hot flashes Medical History ruptured ovarian cyst Surgical History tonsillectomy Surgical History hysterectomy 1987 Surgical History ovarian cyst Hospitalization History surgeries Hospitalization History pneumonia and dehydration 07/04/2016
--- OUTSIDE RECORDS SUMMARY | 2017-07-24 10:37 | XMS REPORT ---
Author Author VINNIE GREWAL [facility] Address [address] [place] [address] Care Team Providers Care Land Acquisition Analyst Name Role Phone VINNIE GREWAL Unavailable PROBLEMS Type Condition ICD9-CM Code EKO86-WY Code Onset Dates Condition Status SNOMED Code Problem Acquired hypothyroidism E03.9 Active 559460989 Problem Allergic rhinitis, unspecified allergic rhinitis type J30.9 Active 87390815 Problem Urinary incontinence in female R32 Active 880180450 Problem Hearing difficulty of left ear H91.92 Active 923393277 ALLERGIES No Information SOCIAL HISTORY Never Assessed PLAN OF CARE VITAL SIGNS MEDICATIONS No Known Medications RESULTS No Results PROCEDURES Procedure Date Ordered Result Body Site IMMUNOTHERAPY, 2 OR MORE INJECTIONS 2016-09-27 N/A IMMUNOTHERAPY INJECTIONS September 27, 2016 IMMUNIZATIONS No Known Immunizations MEDICAL (GENERAL) HISTORY Type Description Date Medical History thyroid Medical History allergies Medical History hot flashes Medical History ruptured ovarian cyst Surgical History tonsillectomy Surgical History hysterectomy 1986 Surgical History ovarian cyst Hospitalization History surgeries Hospitalization History pneumonia and dehydration 07/04/2016
--- OUTSIDE RECORDS SUMMARY | 2017-07-24 10:38 | XMS REPORT ---
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 33287878 Problem Acute upper respiratory infections of unspecified site 465.9 Active 44870378 Problem Pneumonia, organism unspecified 486 Active 522029707 Problem ZOSTAVAX DX V05.8 Active 02146236 Problem Need for prophylactic vaccination and inoculation, Influenza V04.81 Active 309405031 Problem Cough 786.2 Active 59608958 Problem Allergic rhinitis, unspecified allergic rhinitis type J30.9 Active 14781352 Problem Urinary incontinence in female R32 Active 155498096 Problem Allergic rhinitis J30.9 Active 32532500 Problem Allergic rhinitis, cause unspecified 477.9 Active 38338908 Problem Hearing difficulty of left ear H91.92 Active 810890529 Problem Memory loss R41.3 Active 93628564 ALLERGIES Substance Reaction Event Type Date Status cat/dog dander/tree/dust Unknown Non Drug Allergy Jul, Active SOCIAL HISTORY No smoking Hx information available PLAN OF CARE Activity Details Follow Up prn Reason: VITAL SIGNS Height 63 in 2016-08-05 Weight 129.2 lbs 2016-08-05 Temperature 98.7 degrees Fahrenheit 2016-08-05 Heart Rate 82 bpm 2016-08-05 Respiratory Rate 18 2016-08-05 Oximetry on room air:99 % 2016-08-05 BMI 22.88 kg/m2 2016-08-05 Blood pressure systolic 128 mmHg 2016-08-05 Blood pressure diastolic 82 mmHg 2016-08-05 MEDICATIONS Medication Instructions Dosage Frequency Start Date End Date Duration Status Doxycycline Hyclate 100 MG Orally every 12 hrs 1 capsule 12h Jul, Aug, 7 days Active Vitamin B Complex Active Centrum Silver Feb, Active levothyroxine 25 mcg take 1 tablet (25 mcg) by oral route once daily Feb, Active Vitamin C 500 MG Active Fish Oil 1000 MG Orally Once a day 1 capsule 24h Active Benzonatate 100 MG Orally Three times a day 1 capsule 8h Jul, 2 Aug, 2016 7 days Active RESULTS No Results PROCEDURES Procedure Date Ordered Related Diagnosis Body Site MEASURE BLOOD OXYGEN LEVEL Aug 05, 2016 [facility] VISIT ESTABLISHED PATIENT Aug 05, 2016 Office Visit, Est Pt., Level 3 Aug 05, 2016 IMMUNIZATIONS No Known Immunizations
--- OUTSIDE RECORDS SUMMARY | 2017-07-24 10:38 | XMS REPORT ---
Author Author VINNIE GREWAL [facility] Address [address] [place] [address] Care Team Providers Care Buggy Man Name Role Phone VINNIE GREWAL Unavailable PROBLEMS Type Condition ICD9-CM Code YBY68-IC Code Onset Dates Condition Status SNOMED Code Problem Allergic rhinitis J30.9 Active 07946377 Problem Acquired hypothyroidism E03.9 Active 786497529 Problem Hearing difficulty of left ear H91.92 Active 238456413 Problem Allergic rhinitis, unspecified allergic rhinitis type J30.9 Active 51619046 Problem Urinary incontinence in female R32 Active 392907759 ALLERGIES No Information SOCIAL HISTORY Never Assessed PLAN OF CARE VITAL SIGNS MEDICATIONS Unknown Medications RESULTS No Results PROCEDURES Procedure Date Ordered Result Body Site IMMUNOTHERAPY INJECTIONS October 04, 2016 IMMUNIZATIONS No Known Immunizations MEDICAL (GENERAL) HISTORY Type Description Date Medical History thyroid Medical History allergies Medical History hot flashes Medical History ruptured ovarian cyst Surgical History tonsillectomy Surgical History hysterectomy 1987 Surgical History ovarian cyst Hospitalization History surgeries Hospitalization History pneumonia and dehydration 07/04/2016
--- OUTSIDE RECORDS SUMMARY | 2017-07-24 10:38 | XMS REPORT ---
Author Author EDGAR NGO [facility] Address [address] [place] [address] Care Team Providers Care Glassware Engraver Name Role Phone EDGAR NGO Unavailable PROBLEMS Type Condition ICD9-CM Code FNH97-GV Code Onset Dates Condition Status SNOMED Code Problem Acute upper respiratory infections of unspecified site 465.9 Active 85380774 Problem Allergic rhinitis, cause unspecified 477.9 Active 35757732 Problem ZOSTAVAX DX V05.8 Active 72956734 Problem Cough 786.2 Active 22296337 Problem Need for prophylactic vaccination and inoculation, Influenza V04.81 Active 825683274 Problem Pneumonia, organism unspecified 486 Active 831016557 Problem Allergic rhinitis, unspecified allergic rhinitis type J30.9 Active 48288239 Problem Memory loss R41.3 Active 82773963 Problem Allergic rhinitis J30.9 Active 92316977 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
--- OUTSIDE RECORDS SUMMARY | 2017-07-24 10:38 | XMS REPORT ---
Author Author VILLA FERMIN [facility] eClinicalWorks Address Unknown Phone Unavailable Care Team Providers Care Technology Auditor Name Role Phone VILLA FERMIN CP Unavailable Allergies, Adverse Reactions, Alerts Substance Reaction Event Type N.K.D.A. Info Not Available Non Drug Allergy Problems Problem Type Condition Code Onset Dates Condition Status Assessment Allergic rhinitis, unspecified allergic rhinitis type J30.9 Active Assessment Encounter for immunization Z23 Active Problem [...] Instructions Start Date End Date Status Dosage Centrum Silver NDC [address]-05 Feb 29, 2012 not defined Fish Oil NDC [address]-10 1000 MG Orally Once a day 1 capsule levothyroxine NDC 0 25 mcg Feb 29, 2012 take 1 tablet (25 mcg) by oral route once daily Procedures Procedure Coding System Code Date Office Visit, Est Pt., Level 3 CPT-4 58562 May 27, 2015 PCV 13 CPT-4 54155 May 27, 2015 [facility] VISIT ESTABLISHED PATIENT CPT-4 G0467 May 27, 2015 SINGLE IMMUNIZATION ADMIN CPT-4 90438 May 27, 2015 Vital Signs Date/Time: May 27, 2015 Temperature 96.1 F Weight 133.9 lbs Height 63 in BMI 23.72 Index Blood Pressure Diastolic 80 mmHg Blood Pressure Systolic 120 mmHg Cardiac Monitoring Heart Rate 88 bpm Results No Known Results Immunizations Vaccine Administration Date PCV 13 May 27, 2015 Summary Purpose eClinicalWorks Submission
--- OUTSIDE RECORDS SUMMARY | 2017-07-24 10:38 | XMS REPORT ---
Author Author VINNIE GREWAL [facility] Address [address] [place] [address] Care Team Providers Care Home Service Technician Name Role Phone VINNIE GREWAL Unavailable PROBLEMS Type Condition ICD9-CM Code YCA87-WG Code Onset Dates Condition Status SNOMED Code Problem Acquired hypothyroidism E03.9 Active 348161600 Problem Allergic rhinitis, unspecified allergic rhinitis type J30.9 Active 13770219 Problem Urinary incontinence in female R32 Active 727469759 Problem Hearing difficulty of left ear H91.92 Active 510783186 ALLERGIES No Information SOCIAL HISTORY Never Assessed PLAN OF CARE VITAL SIGNS MEDICATIONS No Known Medications RESULTS No Results PROCEDURES Procedure Date Ordered Result Body Site IMMUNOTHERAPY, 2 OR MORE INJECTIONS 2016-09-08 N/A IMMUNOTHERAPY INJECTIONS September 08, 2016 IMMUNIZATIONS No Known Immunizations MEDICAL (GENERAL) HISTORY Type Description Date Medical History thyroid Medical History allergies Medical History hot flashes Medical History ruptured ovarian cyst Surgical History tonsillectomy Surgical History hysterectomy 1986 Surgical History ovarian cyst Hospitalization History surgeries Hospitalization History pneumonia and dehydration 07/04/2016
--- OUTSIDE RECORDS SUMMARY | 2017-07-24 10:38 | XMS REPORT ---
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 Problem Allergic rhinitis, cause unspecified 477.9 Active Problem Allergic rhinitis J30.9 Active Problem Pneumonia, organism unspecified 486 Active Problem Need for prophylactic vaccination and inoculation, Influenza V04.81 Active Problem ZOSTAVAX DX V05.8 Active Problem Acute upper respiratory infections of unspecified site 465.9 Active Medications No Known Medications Procedures Procedure Coding System Code Date IMMUNOTHERAPY INJECTIONS CPT-4 94472 Jun 07, 2016 Results Name Result Date Reference Range Unit Abnormality Flag IMMUNOTHERAPY, 2 OR MORE INJECTIONS Summary Purpose eClinicalWorks Submission
--- OUTSIDE RECORDS SUMMARY | 2017-07-24 10:38 | XMS REPORT ---
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 81219287 Problem Acute upper respiratory infections of unspecified site 465.9 Active 44662803 Problem Pneumonia, organism unspecified 486 Active 655680130 Problem ZOSTAVAX DX V05.8 Active 13967250 Problem Need for prophylactic vaccination and inoculation, Influenza V04.81 Active 908010080 Problem Cough 786.2 Active 28027850 Problem Allergic rhinitis, unspecified allergic rhinitis type J30.9 Active 47094032 Problem Urinary incontinence in female R32 Active 981130597 Problem Allergic rhinitis J30.9 Active 23367464 Problem Allergic rhinitis, cause unspecified 477.9 Active 38629477 Problem Hearing difficulty of left ear H91.92 Active 019496161 Problem Memory loss R41.3 Active 53743493 ALLERGIES Unknown Allergies SOCIAL HISTORY No smoking Hx information available PLAN OF CARE VITAL SIGNS MEDICATIONS Unknown Medications RESULTS No Results PROCEDURES Procedure Date Ordered Related Diagnosis Body Site IMMUNOTHERAPY INJECTIONS Aug 04, 2016 IMMUNIZATIONS No Known Immunizations
--- OUTSIDE RECORDS SUMMARY | 2017-07-24 10:38 | XMS REPORT ---
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9 Active 82704968 Problem ZOSTAVAX DX V05.8 Active 22209096 ALLERGIES Unknown Allergies SOCIAL HISTORY No smoking Hx information available PLAN OF CARE VITAL SIGNS MEDICATIONS Unknown Medications RESULTS No Results PROCEDURES Procedure Date Ordered Related Diagnosis Body Site IMMUNOTHERAPY, 2 OR MORE INJECTIONS 2016-06-21 N/A IMMUNOTHERAPY INJECTIONS Jun 21, 2016 IMMUNIZATIONS No Known Immunizations
--- OUTSIDE RECORDS SUMMARY | 2017-07-24 10:38 | XMS REPORT ---
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 35286359 Problem Acute upper respiratory infections of unspecified site 465.9 Active 20181448 Problem Pneumonia, organism unspecified 486 Active 220362301 Problem ZOSTAVAX DX V05.8 Active 56237072 Problem Need for prophylactic vaccination and inoculation, Influenza V04.81 Active 809051573 Problem Cough 786.2 Active 62690662 Problem Allergic rhinitis, unspecified allergic rhinitis type J30.9 Active 79407944 Problem Urinary incontinence in female R32 Active 312088550 Problem Allergic rhinitis J30.9 Active 95291399 Problem Allergic rhinitis, cause unspecified 477.9 Active 99899997 Problem Hearing difficulty of left ear H91.92 Active 014739429 Problem Memory loss R41.3 Active 73814260 ALLERGIES Unknown Allergies SOCIAL HISTORY No smoking Hx information available PLAN OF CARE VITAL SIGNS MEDICATIONS Unknown Medications RESULTS No Results PROCEDURES No Known procedures IMMUNIZATIONS No Known Immunizations
--- OUTSIDE RECORDS SUMMARY | 2017-07-24 10:38 | XMS REPORT ---
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 61246195 Problem Acute upper respiratory infections of unspecified site 465.9 Active 13005130 Problem Pneumonia, organism unspecified 486 Active 962607964 Problem ZOSTAVAX DX V05.8 Active 73757787 Problem Need for prophylactic vaccination and inoculation, Influenza V04.81 Active 986427946 Problem Cough 786.2 Active 21391436 Problem Allergic rhinitis, unspecified allergic rhinitis type J30.9 Active 02265476 Problem Urinary incontinence in female R32 Active 008640337 Problem Allergic rhinitis J30.9 Active 87275964 Problem Allergic rhinitis, cause unspecified 477.9 Active 27596962 Problem Hearing difficulty of left ear H91.92 Active 702833690 Problem Memory loss R41.3 Active 10872942 ALLERGIES Unknown Allergies SOCIAL HISTORY No smoking Hx information available PLAN OF CARE VITAL SIGNS MEDICATIONS Unknown Medications RESULTS No Results PROCEDURES Procedure Date Ordered Related Diagnosis Body Site IMMUNOTHERAPY, 2 OR MORE INJECTIONS 2016-08-09 N/A IMMUNOTHERAPY INJECTIONS Aug 09, 2016 IMMUNIZATIONS No Known Immunizations
--- OUTSIDE RECORDS SUMMARY | 2017-07-24 10:38 | XMS REPORT ---
Author Author VINNIE GREWAL [facility] Address [address] [place] [address] Care Team Providers Care Manager Chemistry Name Role Phone VINNIE GREWAL Unavailable PROBLEMS Type Condition ICD9-CM Code [id number] Code Onset Dates Condition Status SNOMED Code Problem Acute upper respiratory infections of unspecified site 465.9 Active 39852222 Problem Allergic rhinitis, cause unspecified 477.9 Active 32800841 Problem ZOSTAVAX DX V05.8 Active 04841614 Problem Cough 786.2 Active 87241791 Problem Need for prophylactic vaccination and inoculation, Influenza V04.81 Active 673312622 Problem Pneumonia, organism unspecified 486 Active 897532428 Problem Allergic rhinitis, unspecified allergic rhinitis type J30.9 Active 72306017 Problem Memory loss R41.3 Active 62084517 Problem Allergic rhinitis J30.9 Active 91693942 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 56652911 Problem Hearing difficulty of left ear H91.92 Active 505793899 Problem Urinary incontinence in female R32 Active 405697500 ALLERGIES Substance Reaction Event Type Date Status cat/dog dander/tree/dust Unknown Non Drug Allergy Jun, Active SOCIAL HISTORY No smoking Hx information available PLAN OF CARE Activity Details Follow Up annually for preventive care, sooner for chronic health maintenance Reason: VITAL SIGNS Height 63 in 2016-07-01 Weight 127.8 lbs 2016-07-01 Temperature 98.4 degrees Fahrenheit 2016-07-01 Heart Rate 80 bpm 2016-07-01 Respiratory Rate 20 2016-07-01 BMI 22.64 kg/m2 2016-07-01 Blood pressure systolic 120 mmHg 2016-07-01 Blood pressure diastolic 78 mmHg 2016-07-01 MEDICATIONS Medication Instructions Dosage Frequency Start Date End Date Duration Status levothyroxine 25 mcg take 1 tablet (25 mcg) by oral route once daily Feb, Active Centrum Silver Feb, Active Vitamin B Complex Active Flonase Allergy Relief 50 MCG/ACT Nasally Once a day 1 spray in each nostril 24h Active Fish Oil 1000 MG Orally Once a day 1 capsule 24h Active Tessalon Perles 100 mg 1 capsule by Oral route 3 times per day PRN Sep, Active Vitamin C 500 MG Active RESULTS No Results PROCEDURES Procedure Date Ordered Related Diagnosis Body Site INIT PREV PE LTD DUR 1ST 12 MOS MCR Jul 01, 2016 ANNUAL WELLNES VST; PERSNL PPS INIT Jul 01, 2016 Preventive Care Est Pt. Age 65 and over Jul 01, 2016 ANNUAL WELLNESS VST; PPS SUBSQT VST Jul 01, 2016 IMMUNIZATIONS No Known Immunizations
--- OUTSIDE RECORDS SUMMARY | 2017-07-24 10:40 | XMS REPORT | Continuity of Care Document ---
Author Author [facility] [address] Organization [facility] [address] Address Unknown Phone Unavailable Allergies Active Description Code Type Severity Reaction Onset Reported/Identified Relationship to Patient Clinical Status Yes No Known Drug Allergies [id number] Drug Allergy Unknown N/A 07/04/2016 Medications There is no data. 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 08/20/2010 ROJAS DO, SIGIFREDO K 733.92 CHONDROMALACIA 08/20/2010 ROJAS DO, SIGIFREDO K 733.92 CHONDROMALACIA 08/20/2010 ROJAS DO, SIGIFREDO K 733.92 CHONDROMALACIA 08/20/2010 ROJAS DO, SIGIFREDO K 733.92 CHONDROMALACIA 08/20/2010 ROJAS DO, SIGIFREDO K 733.92 CHONDROMALACIA 08/20/2010 ROJAS DO, SIGIFREDO K 733.92 CHONDROMALACIA 08/20/2010 ROJAS DO, SIGIFREDO K 733.92 CHONDROMALACIA 08/20/2010 ROJAS DO, SIGIFREDO K 733.92 CHONDROMALACIA 08/20/2010 ROJAS DO, SIGIFREDO K 733.92 CHONDROMALACIA 08/20/2010 ROJAS DO, SIGIFREDO K 733.92 CHONDROMALACIA 08/20/2010 ROJAS DO, SIGIFREDO K 733.92 CHONDROMALACIA 08/20/2010 ROJAS DO, SIGIFREDO K 733.92 CHONDROMALACIA 08/20/2010 ROJAS DO, SIGIFREDO K 733.92 CHONDROMALACIA 08/20/2010 ROJAS DO, SIGIFREDO K 733.92 CHONDROMALACIA 08/20/2010 ROJAS DO, SIGIFREDO K 733.92 CHONDROMALACIA 08/20/2010 ROJAS DO, SIGIFREDO K 733.92 CHONDROMALACIA 08/20/2010 ROJAS DO, SIGIFREDO K 733.92 CHONDROMALACIA 08/20/2010 ROJAS DO, SIGIFREDO K 733.92 CHONDROMALACIA 08/20/2010 ROJAS DO, SIGIFREDO K 733.92 CHONDROMALACIA 08/20/2010 ROJAS DO, SIGIFREDO K 733.92 CHONDROMALACIA 08/20/2010 ROJAS DO, SIGIFREDO K 733.92 CHONDROMALACIA 08/20/2010 ROJAS DO, SIGIFREDO K 733.92 CHONDROMALACIA 08/20/2010 ROJAS DO, SIGIFREDO K 733.92 CHONDROMALACIA 08/20/2010 ROJAS DO, SIGIFREDO K 733.92 CHONDROMALACIA 08/20/2010 ROJAS DO, SIGIFREDO K 733.92 CHONDROMALACIA 08/20/2010 ROJAS DO, SIGIFREDO K 733.92 CHONDROMALACIA 08/20/2010 ROJAS DO, SIGIFREDO K 733.92 CHONDROMALACIA 08/20/2010 ROJAS DO, SIGIFREDO K 733.92 CHONDROMALACIA 08/20/2010 ROJAS DO, SIGIFREDO K 733.92 CHONDROMALACIA 08/20/2010 ROJAS DO, SIGIFREDO K 733.92 CHONDROMALACIA 08/20/2010 ROJAS DO, SIGIFREDO K 733.92 CHONDROMALACIA 08/20/2010 ROJAS DO, SIGIFREDO K 733.92 CHONDROMALACIA 08/20/2010 ROJAS DO, SIGIFREDO K 733.92 CHONDROMALACIA 08/20/2010 ROJAS DO, SIGIFREDO K 733.92 CHONDROMALACIA 08/20/2010 ROJAS DO, SIGIFREDO K 733.92 CHONDROMALACIA 08/20/2010 ROJAS DO, SIGIFREDO K 733.92 CHONDROMALACIA 08/20/2010 ROJAS DO, SIGIFREDO K 733.92 CHONDROMALACIA 08/20/2010 ROJAS DO, SIGIFREDO K 733.92 CHONDROMALACIA 08/20/2010 ROJAS DO, SIGIFREDO K 733.92 CHONDROMALACIA 08/20/2010 ROJAS DO, SIGIFREDO K 733.92 CHONDROMALACIA 08/20/2010 ROJAS DO, SIGIFREDO K 733.92 CHONDROMALACIA 08/20/2010 ROJAS DO, SIGIFREDO K 733.92 CHONDROMALACIA 08/20/2010 ROJAS DO, SIGIFREDO K 733.92 CHONDROMALACIA 10/14/2010 995.3 ALLERGY UNSPECIFIED NOT ELSEWHERE CLASSIFIED 10/14/2010 995.3 ALLERGY UNSPECIFIED NOT ELSEWHERE CLASSIFIED 10/14/2010 995.3 ALLERGY UNSPECIFIED NOT ELSEWHERE CLASSIFIED 10/14/2010 995.3 ALLERGY UNSPECIFIED NOT ELSEWHERE CLASSIFIED 10/14/2010 995.3 ALLERGY UNSPECIFIED NOT ELSEWHERE CLASSIFIED 10/14/2010 995.3 ALLERGY UNSPECIFIED NOT ELSEWHERE CLASSIFIED 10/14/2010 995.3 ALLERGY UNSPECIFIED NOT ELSEWHERE CLASSIFIED 10/14/2010 ROJAS DO, SIGIFREDO K 995.3 ALLERGY UNSPECIFIED NOT ELSEWHERE CLASSIFIED 10/14/2010 ROJAS DO, SIGIFREDO K 995.3 ALLERGY UNSPECIFIED NOT ELSEWHERE CLASSIFIED 10/14/2010 ROJAS DO, SIGIFREDO K 995.3 ALLERGY UNSPECIFIED NOT ELSEWHERE CLASSIFIED 10/14/2010 ROJAS DO, SIGIFREDO K 995.3 ALLERGY UNSPECIFIED NOT ELSEWHERE CLASSIFIED 10/14/2010 ROJAS DO, SIGIFREDO K 995.3 ALLERGY UNSPECIFIED NOT ELSEWHERE CLASSIFIED 10/14/2010 ROJAS DO, SIGIFREDO K 995.3 ALLERGY UNSPECIFIED NOT ELSEWHERE CLASSIFIED 10/14/2010 ROJAS DO, SIGIFREDO K 995.3 ALLERGY UNSPECIFIED NOT ELSEWHERE CLASSIFIED 10/14/2010 ROJAS DO, SIGIFREDO K 995.3 ALLERGY UNSPECIFIED NOT ELSEWHERE CLASSIFIED 10/14/2010 ROJAS DO, SIGIFREDO K 995.3 ALLERGY UNSPECIFIED NOT ELSEWHERE CLASSIFIED 10/14/2010 ROJAS DO, SIGIFREDO K 995.3 ALLERGY UNSPECIFIED NOT ELSEWHERE CLASSIFIED 10/14/2010 ROJAS DO, SIGIFREDO K 995.3 ALLERGY UNSPECIFIED NOT ELSEWHERE CLASSIFIED 10/14/2010 ROJAS DO, SIGIFREDO K 995.3 ALLERGY UNSPECIFIED NOT ELSEWHERE CLASSIFIED 10/14/2010 ROJAS DO, SIGIFREDO K 995.3 ALLERGY UNSPECIFIED NOT ELSEWHERE CLASSIFIED 10/14/2010 ROJAS DO, SIGIFREDO K 995.3 ALLERGY UNSPECIFIED NOT ELSEWHERE CLASSIFIED 10/14/2010 ROJSA DO, SIGIFREDO K 995.3 ALLERGY UNSPECIFIED NOT ELSEWHERE CLASSIFIED 10/14/2010 ROJAS DO, SIGIFREDO K 995.3 ALLERGY UNSPECIFIED NOT ELSEWHERE CLASSIFIED 10/14/2010 ROJAS DO, SIGIFREDO K 995.3 ALLERGY UNSPECIFIED NOT ELSEWHERE CLASSIFIED 10/14/2010 ROJAS DO, SIGIFREDO K 995.3 ALLERGY UNSPECIFIED NOT ELSEWHERE CLASSIFIED 10/14/2010 ROJAS DO, SIGIFREDO K 995.3 ALLERGY UNSPECIFIED NOT ELSEWHERE CLASSIFIED 10/14/2010 ROJAS DO, SIGIFREDO K 995.3 ALLERGY UNSPECIFIED NOT ELSEWHERE CLASSIFIED 10/14/2010 ROJAS DO, SIGIFREDO K 995.3 ALLERGY UNSPECIFIED NOT ELSEWHERE CLASSIFIED 10/14/2010 ROJAS DO, SIGIFREDO K 995.3 ALLERGY UNSPECIFIED NOT ELSEWHERE CLASSIFIED 10/14/2010 ROJAS DO, SIGIFREDO K 995.3 ALLERGY UNSPECIFIED NOT ELSEWHERE CLASSIFIED 10/14/2010 ROJAS DO, SIGIFREDO K 995.3 ALLERGY UNSPECIFIED NOT ELSEWHERE CLASSIFIED 10/14/2010 ROJAS DO, SIGIFREDO K 995.3 ALLERGY UNSPECIFIED NOT ELSEWHERE CLASSIFIED 10/14/2010 ROJAS DO, SIGIFREDO K 995.3 ALLERGY UNSPECIFIED NOT ELSEWHERE CLASSIFIED 10/14/2010 ROJAS DO, SIGIFREDO K 995.3 ALLERGY UNSPECIFIED NOT ELSEWHERE CLASSIFIED 10/14/2010 ROJAS DO, SIGIFREDO K 995.3 ALLERGY UNSPECIFIED NOT ELSEWHERE CLASSIFIED 10/14/2010 ROJAS DO, SIGIFREDO K 995.3 ALLERGY UNSPECIFIED NOT ELSEWHERE CLASSIFIED 10/14/2010 ROJAS DO, SIGIFREDO K 995.3 ALLERGY UNSPECIFIED NOT ELSEWHERE CLASSIFIED 10/14/2010 ROJAS DO, SIGIFREDO K 995.3 ALLERGY UNSPECIFIED NOT ELSEWHERE CLASSIFIED 10/14/2010 ROJAS DO, SIGIFREDO K 995.3 ALLERGY UNSPECIFIED NOT ELSEWHERE CLASSIFIED 10/14/2010 ROJAS DO, SIGIFREDO K 995.3 ALLERGY UNSPECIFIED NOT ELSEWHERE CLASSIFIED 10/14/2010 ROJAS DO, SIGIFREDO K 995.3 ALLERGY UNSPECIFIED NOT ELSEWHERE CLASSIFIED 10/14/2010 ROJAS DO, SIGIFREDO K 995.3 ALLERGY UNSPECIFIED NOT ELSEWHERE CLASSIFIED 10/14/2010 ROJAS DO, SIGIFREDO K 995.3 ALLERGY UNSPECIFIED NOT ELSEWHERE CLASSIFIED 10/14/2010 ROJAS DO, SIGIFREDO K 995.3 ALLERGY UNSPECIFIED NOT ELSEWHERE CLASSIFIED 10/14/2010 ROJAS DO, SIGIFREDO K 995.3 ALLERGY UNSPECIFIED NOT ELSEWHERE CLASSIFIED 10/14/2010 ROJAS DO, SIGIFREDO K 995.3 ALLERGY UNSPECIFIED NOT ELSEWHERE CLASSIFIED 10/14/2010 ROJAS DO, SIGIFREDO K 995.3 ALLERGY UNSPECIFIED NOT ELSEWHERE CLASSIFIED 10/14/2010 ROJAS DO, SIGIFREDO K 995.3 ALLERGY UNSPECIFIED NOT ELSEWHERE CLASSIFIED 10/14/2010 ROJAS DO, SIGIFREDO K 995.3 ALLERGY UNSPECIFIED NOT ELSEWHERE CLASSIFIED 10/14/2010 ROJAS DO, SIGIFREDO K 995.3 ALLERGY UNSPECIFIED NOT ELSEWHERE CLASSIFIED 11/16/2010 477.0 ALLERGIC RHINITIS DUE TO POLLEN 11/16/2010 477.0 ALLERGIC RHINITIS DUE TO POLLEN 11/16/2010 477.0 ALLERGIC RHINITIS DUE TO POLLEN 11/16/2010 477.0 ALLERGIC RHINITIS DUE TO POLLEN 11/16/2010 477.0 ALLERGIC RHINITIS DUE TO POLLEN 11/16/2010 477.0 ALLERGIC RHINITIS DUE TO POLLEN 11/16/2010 477.0 ALLERGIC RHINITIS DUE TO POLLEN 11/16/2010 ROJAS DO, SIGIFREDO K 477.0 ALLERGIC RHINITIS DUE TO POLLEN 11/16/2010 ROJAS DO, SIGIFREDO K 477.0 ALLERGIC RHINITIS DUE TO POLLEN 11/16/2010 ROJAS DO, SIGIFREDO K 477.0 ALLERGIC RHINITIS DUE TO POLLEN 11/16/2010 ROJAS DO, SIGIFREDO K 477.0 ALLERGIC RHINITIS DUE TO POLLEN 11/16/2010 ROJAS DO, SIGIFREDO K 477.0 ALLERGIC RHINITIS DUE TO POLLEN 11/16/2010 ROJAS DO, SIGIFREDO K 477.0 ALLERGIC RHINITIS DUE TO POLLEN 11/16/2010 ROJAS DO, SIGIFREDO K 477.0 ALLERGIC RHINITIS DUE TO POLLEN 11/16/2010 ROJAS DO, SIGIFREDO K 477.0 ALLERGIC RHINITIS DUE TO POLLEN 11/16/2010 ROJAS DO, SIGIFREDO K 477.0 ALLERGIC RHINITIS DUE TO POLLEN 11/16/2010 ROJAS DO, SIGIFREDO K 477.0 ALLERGIC RHINITIS DUE TO POLLEN 11/16/2010 ROJAS DO, SIGIFREDO K 477.0 ALLERGIC RHINITIS DUE TO POLLEN 11/16/2010 ROJAS DO, SIGIFREDO K 477.0 ALLERGIC RHINITIS DUE TO POLLEN 11/16/2010 ROJAS DO, SIGIFREDO K 477.0 ALLERGIC RHINITIS DUE TO POLLEN 11/16/2010 ROJAS DO, SIGIFREDO K 477.0 ALLERGIC RHINITIS DUE TO POLLEN 11/16/2010 ROJAS DO, SIGIFREDO K 477.0 ALLERGIC RHINITIS DUE TO POLLEN 11/16/2010 ROJAS DO, SIGIFREDO K 477.0 ALLERGIC RHINITIS DUE TO POLLEN 11/16/2010 ROJAS DO, SIGIFREDO K 477.0 ALLERGIC RHINITIS DUE TO POLLEN 11/16/2010 ROJAS DO, SIGIFREDO K 477.0 ALLERGIC RHINITIS DUE TO POLLEN 11/16/2010 ROJAS DO, SIGIFREDO K 477.0 ALLERGIC RHINITIS DUE TO POLLEN 11/16/2010 ROJAS DO, SIGIFREDO K 477.0 ALLERGIC RHINITIS DUE TO POLLEN 11/16/2010 ROJAS DO, SIGIFREDO K 477.0 ALLERGIC RHINITIS DUE TO POLLEN 11/16/2010 ROJAS DO, SIGIFREDO K 477.0 ALLERGIC RHINITIS DUE TO POLLEN 11/16/2010 ROJAS DO, SIGIFREDO K 477.0 ALLERGIC RHINITIS DUE TO POLLEN 11/16/2010 ROJAS DO, SIGIFREDO K 477.0 ALLERGIC RHINITIS DUE TO POLLEN 11/16/2010 ROJAS DO, SIGIFREDO K 477.0 ALLERGIC RHINITIS DUE TO POLLEN 11/16/2010 ROJAS DO, SIGIFREDO K 477.0 ALLERGIC RHINITIS DUE TO POLLEN 11/16/2010 ROJAS DO, SIGIFREDO K 477.0 ALLERGIC RHINITIS DUE TO POLLEN 11/16/2010 ROJAS DO, SIGIFREDO K 477.0 ALLERGIC RHINITIS DUE TO POLLEN 11/16/2010 ROJAS DO, SIGIFREDO K 477.0 ALLERGIC RHINITIS DUE TO POLLEN 11/16/2010 ROJAS DO, SIGIFREDO K 477.0 ALLERGIC RHINITIS DUE TO POLLEN 11/16/2010 ROJAS DO, SIGIFREDO K 477.0 ALLERGIC RHINITIS DUE TO POLLEN 11/16/2010 ROJAS DO, SIGIFREDO K 477.0 ALLERGIC RHINITIS DUE TO POLLEN 11/16/2010 ROJAS DO, SIGIFREDO K 477.0 ALLERGIC RHINITIS DUE TO POLLEN 11/16/2010 ROJAS DO, SIGIFREDO K 477.0 ALLERGIC RHINITIS DUE TO POLLEN 11/16/2010 ROJAS DO, SIGIFREDO K 477.0 ALLERGIC RHINITIS DUE TO POLLEN 11/16/2010 ROJAS DO, SIGIFREDO K 477.0 ALLERGIC RHINITIS DUE TO POLLEN 11/16/2010 ROJAS DO, SIGIFREDO K 477.0 ALLERGIC RHINITIS DUE TO POLLEN 11/16/2010 ROJAS DO, SIGIFREDO K 477.0 ALLERGIC RHINITIS DUE TO POLLEN 11/16/2010 ROJAS DO, SIGIFREDO K 477.0 ALLERGIC RHINITIS DUE TO POLLEN 11/16/2010 ROJAS DO, SIGIFREDO K 477.0 ALLERGIC RHINITIS DUE TO POLLEN 11/16/2010 ROJAS DO, SIGIFREDO K 477.0 ALLERGIC RHINITIS DUE TO POLLEN 11/16/2010 ROJAS DO, SIGIFREDO K 477.0 ALLERGIC RHINITIS DUE TO POLLEN 11/16/2010 ROJAS DO, SIGIFREDO K 477.0 ALLERGIC RHINITIS DUE TO POLLEN 02/29/2012 486 PNEUMONIA UNSPECIFIED 02/29/2012 486 PNEUMONIA UNSPECIFIED 02/29/2012 486 PNEUMONIA UNSPECIFIED 02/29/2012 486 PNEUMONIA UNSPECIFIED 02/29/2012 486 PNEUMONIA UNSPECIFIED 02/29/2012 486 PNEUMONIA UNSPECIFIED 02/29/2012 486 PNEUMONIA UNSPECIFIED 02/29/2012 ROJAS DO, SIGIFREDO K 486 PNEUMONIA UNSPECIFIED 02/29/2012 ROJAS DO, SIGIFREDO K 486 PNEUMONIA UNSPECIFIED 02/29/2012 ROJAS DO, SIGIFREDO K 486 PNEUMONIA UNSPECIFIED 02/29/2012 ROJAS DO, SIGIFREDO K 486 PNEUMONIA UNSPECIFIED 02/29/2012 ROJAS DO, SIGIFREDO K 486 PNEUMONIA UNSPECIFIED 02/29/2012 ROJAS DO, SIGIFREDO K 486 PNEUMONIA UNSPECIFIED 02/29/2012 ROJAS DO, SIGIFREDO K 486 PNEUMONIA UNSPECIFIED 02/29/2012 ROJAS DO, SIGIFREDO K 486 PNEUMONIA UNSPECIFIED 02/29/2012 ROJAS DO, SIGIFREDO K 486 PNEUMONIA UNSPECIFIED 02/29/2012 ROJAS DO, SIGIFREDO K 486 PNEUMONIA UNSPECIFIED 02/29/2012 ROJAS DO, SIGIFREDO K 486 PNEUMONIA UNSPECIFIED 02/29/2012 ROJAS DO, SIGIFREDO K 486 PNEUMONIA UNSPECIFIED 02/29/2012 ROJAS DO, SIGIFREDO K 486 PNEUMONIA UNSPECIFIED 02/29/2012 ROJAS DO, SIGIFREDO K 486 PNEUMONIA UNSPECIFIED 02/29/2012 ROJAS DO, SIGIFREDO K 486 PNEUMONIA UNSPECIFIED 02/29/2012 ROJAS DO, SIGIFREDO K 486 PNEUMONIA UNSPECIFIED 02/29/2012 ROJAS DO, SIGIFREDO K 486 PNEUMONIA UNSPECIFIED 02/29/2012 ROJAS DO, SIGIFREDO K 486 PNEUMONIA UNSPECIFIED 02/29/2012 ROJAS DO, SIGIFREDO K 486 PNEUMONIA UNSPECIFIED 02/29/2012 ROJAS DO, SIGIFREDO K 486 PNEUMONIA UNSPECIFIED 02/29/2012 ROJAS DO, SIGIFREDO K 486 PNEUMONIA UNSPECIFIED 02/29/2012 ROJAS DO, SIGIFREDO K 486 PNEUMONIA UNSPECIFIED 02/29/2012 ROJAS DO, SIGIFREDO K 486 PNEUMONIA UNSPECIFIED 02/29/2012 ROJAS DO, SIGIFREDO K 486 PNEUMONIA UNSPECIFIED 02/29/2012 ROJAS DO, SIGIFREDO K 486 PNEUMONIA UNSPECIFIED 02/29/2012 ROJAS DO, SIGIFREDO K 486 PNEUMONIA UNSPECIFIED 02/29/2012 ORJAS DO, SIGIFREDO K 486 PNEUMONIA UNSPECIFIED 02/29/2012 ROJAS DO, SIGIFREDO K 486 PNEUMONIA UNSPECIFIED 02/29/2012 ROJAS DO, SIGIFREDO K 486 PNEUMONIA UNSPECIFIED 02/29/2012 ROJAS DO, SIGIFREDO K 486 PNEUMONIA UNSPECIFIED 02/29/2012 ROJAS DO, SIGIFREDO K 486 PNEUMONIA UNSPECIFIED 02/29/2012 ROJAS DO, SIGIFREDO K 486 PNEUMONIA UNSPECIFIED 02/29/2012 ROJAS DO, SIGIFREDO K 486 PNEUMONIA UNSPECIFIED 02/29/2012 ROJAS DO, SIGIFREDO K 486 PNEUMONIA UNSPECIFIED 02/29/2012 ROJAS DO, SIGIFREDO K 486 PNEUMONIA UNSPECIFIED 02/29/2012 ROJAS DO, SIGIFREDO K 486 PNEUMONIA UNSPECIFIED 02/29/2012 ROJAS DO, SIGIFREDO K 486 PNEUMONIA UNSPECIFIED 02/29/2012 ROJAS DO, SIGIFREDO K 486 PNEUMONIA UNSPECIFIED 02/29/2012 ROJAS DO, SIGIFREDO K 486 PNEUMONIA UNSPECIFIED 02/29/2012 ROJAS DO, SIGIFREDO K 486 PNEUMONIA UNSPECIFIED 02/29/2012 ROJAS DO, SIGIFREDO K 486 PNEUMONIA UNSPECIFIED 02/29/2012 ROJAS DO, SIGIFREDO K 486 PNEUMONIA UNSPECIFIED 02/29/2012 ROJAS DO, SIGIFREDO K 486 PNEUMONIA UNSPECIFIED 03/12/2012 Ot 466.0 ACUTE BRONCHITIS 03/12/2012 Ot 786.05 SHORTNESS OF BREATH 03/12/2012 Ot V58.69 OTH MED,LT, CURRENT USE 03/27/2012 Ot 244.9 HYPOTHYROIDISM NOS 03/27/2012 Ot 401.9 HYPERTENSION NOS 03/27/2012 Ot 482.83 PNEUMONIA DUE TO OTHER GRAM-NEGATIVE JULIO 03/27/2012 Ot 494.0 BRONCHIECTASIS W/O ACUTE EXACERBATION 03/27/2012 Ot 786.50 CHEST PAIN NOS 07/05/2012 786.2 cough 07/05/2012 786.2 cough 07/05/2012 786.2 cough 07/05/2012 786.2 cough 07/05/2012 786.2 cough 07/05/2012 786.2 cough 07/05/2012 786.2 cough 07/05/2012 ROJAS DO, SIGIFREDO K 786.2 cough 07/05/2012 ROJAS DO, SIGIFREDO K 786.2 cough 07/05/2012 ROJAS DO, SIGIFREDO K 786.2 cough 07/05/2012 ROJAS DO, SIGIFREDO K 786.2 cough 07/05/2012 ROJAS DO, SIGIFREDO K 786.2 cough 07/05/2012 ROJAS DO, SIGIFREDO K 786.2 cough 07/05/2012 ROJAS DO, SIGIFREDO K 786.2 cough 07/05/2012 ROJAS DO, SIGIFREDO K 786.2 cough 07/05/2012 ROJAS DO, SIGIFREDO K 786.2 cough 07/05/2012 ROJAS DO, SIGIFREDO K 786.2 cough 07/05/2012 ROJAS DO, SIGIFREDO K 786.2 cough 07/05/2012 ROJAS DO, SIGIFREDO K 786.2 cough 07/05/2012 ROJAS DO, SIGIFREDO K 786.2 cough 07/05/2012 ROJAS DO, SIGIFREDO K 786.2 cough 07/05/2012 ROJAS DO, SIGIFREDO K 786.2 cough 07/05/2012 ROJAS DO, SIGIFREDO K 786.2 cough 07/05/2012 ROJAS DO, SIGIFREDO K 786.2 cough 07/05/2012 ROJAS DO, SIGIFREDO K 786.2 cough 07/05/2012 ROJAS DO, SIGIFREDO K 786.2 cough 07/05/2012 ROJAS DO, SIGIFREDO K 786.2 cough 07/05/2012 ROJAS DO, SIGIFREDO K 786.2 cough 07/05/2012 ROJAS DO, SIGIFREDO K 786.2 cough 07/05/2012 ROJAS DO, SIGIFREDO K 786.2 cough 07/05/2012 ROJAS DO, SIGIFREDO K 786.2 cough 07/05/2012 ROJAS DO, SIGIFREDO K 786.2 cough 07/05/2012 ROJAS DO, SIGIFREDO K 786.2 cough 07/05/2012 ROJAS DO, SIGIFREDO K 786.2 cough 07/05/2012 ROJAS DO, SIGIFREDO K 786.2 cough 07/05/2012 ROJAS DO, SIGIFREDO K 786.2 cough 07/05/2012 ROJAS DO, SIGIFREDO K 786.2 cough 07/05/2012 ROJAS DO, SIGIFREDO K 786.2 cough 07/05/2012 ROJAS DO, SIGIFREDO K 786.2 cough 07/05/2012 ROJAS DO, SIGIFREDO K 786.2 cough 07/05/2012 ROJAS DO, SIGIFREDO K 786.2 cough 07/05/2012 ROJAS DO, SIGIFREDO K 786.2 cough 07/05/2012 ROJAS DO, SIGIFREDO K 786.2 cough 07/05/2012 ROJAS DO, SIGIFREDO K 786.2 cough 07/05/2012 ROJAS DO, SIGIFREDO K 786.2 cough 07/05/2012 ROJAS DO, SIGIFREDO K 786.2 cough 07/05/2012 ROJAS DO, SIGIFREDO K 786.2 cough 07/05/2012 ROJAS DO, SIGIFREDO K 786.2 cough 07/05/2012 ROJAS DO, SIGIFREDO K 786.2 cough 07/05/2012 ROJAS DO, SIGIFREDO K 786.2 cough 11/23/2012 465.9 ACUTE UPPER RESPIRATORY INFECTIONS OF UNSPECIFIED SITE 11/23/2012 465.9 ACUTE UPPER RESPIRATORY INFECTIONS OF UNSPECIFIED SITE 11/23/2012 465.9 ACUTE UPPER RESPIRATORY INFECTIONS OF UNSPECIFIED SITE 11/23/2012 465.9 ACUTE UPPER RESPIRATORY INFECTIONS OF UNSPECIFIED SITE 11/23/2012 ROJAS DO, SIGIFREDO K 465.9 ACUTE UPPER RESPIRATORY INFECTIONS OF UNSPECIFIED SITE 11/23/2012 ROAJS DO, SIGIFREDO K 465.9 ACUTE UPPER RESPIRATORY INFECTIONS OF UNSPECIFIED SITE 11/23/2012 ROJAS DO, SIGIFREDO K 465.9 ACUTE UPPER RESPIRATORY INFECTIONS OF UNSPECIFIED SITE 11/23/2012 ROJAS DO, SIGIFREDO K 465.9 ACUTE UPPER RESPIRATORY INFECTIONS OF UNSPECIFIED SITE 11/23/2012 ROJAS DO, SIGIFREDO K 465.9 ACUTE UPPER RESPIRATORY INFECTIONS OF UNSPECIFIED SITE 11/23/2012 ROJAS DO, SIGIFREDO K 465.9 ACUTE UPPER RESPIRATORY INFECTIONS OF UNSPECIFIED SITE 11/23/2012 ROJAS DO, SIGIFREDO K 465.9 ACUTE UPPER RESPIRATORY INFECTIONS OF UNSPECIFIED SITE 11/23/2012 ROJAS DO, SIGIFREDO K 465.9 ACUTE UPPER RESPIRATORY INFECTIONS OF UNSPECIFIED SITE 11/23/2012 ROJAS DO, SIGIFREDO K 465.9 ACUTE UPPER RESPIRATORY INFECTIONS OF UNSPECIFIED SITE 11/23/2012 ROJAS DO, SIGIFREDO K 465.9 ACUTE UPPER RESPIRATORY INFECTIONS OF UNSPECIFIED SITE 11/23/2012 ROJAS DO, SIGIFREDO K 465.9 ACUTE UPPER RESPIRATORY INFECTIONS OF UNSPECIFIED SITE 11/23/2012 ROJAS DO, SIGIFREDO K 465.9 ACUTE UPPER RESPIRATORY INFECTIONS OF UNSPECIFIED SITE 11/23/2012 ROJAS DO, SIGIFREDO K 465.9 ACUTE UPPER RESPIRATORY INFECTIONS OF UNSPECIFIED SITE 11/23/2012 ROJAS DO, SIGIFREDO K 465.9 ACUTE UPPER RESPIRATORY INFECTIONS OF UNSPECIFIED SITE 11/23/2012 ROJAS DO, SIGIFREDO K 465.9 ACUTE UPPER RESPIRATORY INFECTIONS OF UNSPECIFIED SITE 11/23/2012 ROJAS DO, SIGIFREDO K 465.9 ACUTE UPPER RESPIRATORY INFECTIONS OF UNSPECIFIED SITE 11/23/2012 ROJAS DO, SIGIFREDO K 465.9 ACUTE UPPER RESPIRATORY INFECTIONS OF UNSPECIFIED SITE 11/23/2012 ROJAS DO, SIGIFREDO K 465.9 ACUTE UPPER RESPIRATORY INFECTIONS OF UNSPECIFIED SITE 11/23/2012 ROJAS DO, SIGIFREDO K 465.9 ACUTE UPPER RESPIRATORY INFECTIONS OF UNSPECIFIED SITE 11/23/2012 ROJAS DO, SIGIFREDO K 465.9 ACUTE UPPER RESPIRATORY INFECTIONS OF UNSPECIFIED SITE 11/23/2012 ROJAS DO, SIGIFREDO K 465.9 ACUTE UPPER RESPIRATORY INFECTIONS OF UNSPECIFIED SITE 11/23/2012 ROJAS DO, SIGIFREDO K 465.9 ACUTE UPPER RESPIRATORY INFECTIONS OF UNSPECIFIED SITE 11/23/2012 ROJAS DO, SIGIFREDO K 465.9 ACUTE UPPER RESPIRATORY INFECTIONS OF UNSPECIFIED SITE 11/23/2012 ROJAS DO, SIGIFREDO K 465.9 ACUTE UPPER RESPIRATORY INFECTIONS OF UNSPECIFIED SITE 11/23/2012 ROJAS DO, SIGIFREDO K 465.9 ACUTE UPPER RESPIRATORY INFECTIONS OF UNSPECIFIED SITE 11/23/2012 ROJAS DO, SIGIFREDO K 465.9 ACUTE UPPER RESPIRATORY INFECTIONS OF UNSPECIFIED SITE 11/23/2012 ROJAS DO, SIGIFREDO K 465.9 ACUTE UPPER RESPIRATORY INFECTIONS OF UNSPECIFIED SITE 11/23/2012 ROJAS DO, SIGIFREDO K 465.9 ACUTE UPPER RESPIRATORY INFECTIONS OF UNSPECIFIED SITE 11/23/2012 ROJAS DO, SIGIFREDO K 465.9 ACUTE UPPER RESPIRATORY INFECTIONS OF UNSPECIFIED SITE 11/23/2012 ROJAS DO, SIGIFREDO K 465.9 ACUTE UPPER RESPIRATORY INFECTIONS OF UNSPECIFIED SITE 11/23/2012 ROJAS DO, SIGIFREDO K 465.9 ACUTE UPPER RESPIRATORY INFECTIONS OF UNSPECIFIED SITE 11/23/2012 ROJAS DO, SIGIFREDO K 465.9 ACUTE UPPER RESPIRATORY INFECTIONS OF UNSPECIFIED SITE 11/23/2012 ROJAS DO, SIGIFREDO K 465.9 ACUTE UPPER RESPIRATORY INFECTIONS OF UNSPECIFIED SITE 11/23/2012 ROJAS DO, SIGIFREDO K 465.9 ACUTE UPPER RESPIRATORY INFECTIONS OF UNSPECIFIED SITE 11/23/2012 ROJAS DO, SIGIFREDO K 465.9 ACUTE UPPER RESPIRATORY INFECTIONS OF UNSPECIFIED SITE 11/23/2012 ROJAS DO, SIGIFREDO K 465.9 ACUTE UPPER RESPIRATORY INFECTIONS OF UNSPECIFIED SITE 11/23/2012 ROJAS DO, SIGIFREDO K 465.9 ACUTE UPPER RESPIRATORY INFECTIONS OF UNSPECIFIED SITE 11/23/2012 ROJAS DO, SIGIFREDO K 465.9 ACUTE UPPER RESPIRATORY INFECTIONS OF UNSPECIFIED SITE 11/23/2012 ROJAS DO, SIGIFREDO K 465.9 ACUTE UPPER RESPIRATORY INFECTIONS OF UNSPECIFIED SITE 11/23/2012 ROJAS DO, SIGIFREDO K 465.9 ACUTE UPPER RESPIRATORY INFECTIONS OF UNSPECIFIED SITE 11/23/2012 ROJAS DO, SIGIFREDO K 465.9 ACUTE UPPER RESPIRATORY INFECTIONS OF UNSPECIFIED SITE 11/23/2012 ROJAS DO, SIGIFREDO K 465.9 ACUTE UPPER RESPIRATORY INFECTIONS OF UNSPECIFIED SITE 11/23/2012 ROJAS DO, SIGIFREDO K 465.9 ACUTE UPPER RESPIRATORY INFECTIONS OF UNSPECIFIED SITE 03/13/2013 477.9 ALLERGIC RHINITIS CAUSE UNSPECIFIED 03/13/2013 ROJAS DO, SIGIFREDO K 477.9 ALLERGIC RHINITIS CAUSE UNSPECIFIED 03/13/2013 ROJAS DO, SIGIFREDO K 477.9 ALLERGIC RHINITIS CAUSE UNSPECIFIED 03/13/2013 ROJAS DO, SIGIFREDO K 477.9 ALLERGIC RHINITIS CAUSE UNSPECIFIED 03/13/2013 ROJAS DO, SIGIFREDO K 477.9 ALLERGIC RHINITIS CAUSE UNSPECIFIED 03/13/2013 ROJAS DO, SIGIFREDO K 477.9 ALLERGIC RHINITIS CAUSE UNSPECIFIED 03/13/2013 ROJAS DO, SIGIFREDO K 477.9 ALLERGIC RHINITIS CAUSE UNSPECIFIED 03/13/2013 ROJAS DO, SIGIFREDO K 477.9 ALLERGIC RHINITIS CAUSE UNSPECIFIED 03/13/2013 ROJAS DO, SIGIFREDO K 477.9 ALLERGIC RHINITIS CAUSE UNSPECIFIED 03/13/2013 ROJAS DO, SIGIFREDO K 477.9 ALLERGIC RHINITIS CAUSE UNSPECIFIED 03/13/2013 ROJAS DO, SIGIFREDO K 477.9 ALLERGIC RHINITIS CAUSE UNSPECIFIED 03/13/2013 ROJAS DO, SIGIFREDO K 477.9 ALLERGIC RHINITIS CAUSE UNSPECIFIED 03/13/2013 ROJAS DO, SIGIFREDO K 477.9 ALLERGIC RHINITIS CAUSE UNSPECIFIED 03/13/2013 ROJAS DO, SIGIFREDO K 477.9 ALLERGIC RHINITIS CAUSE UNSPECIFIED 03/13/2013 ROJAS DO, SIGIFREDO K 477.9 ALLERGIC RHINITIS CAUSE UNSPECIFIED 03/13/2013 ROJAS DO, SIGIFREDO K 477.9 ALLERGIC RHINITIS CAUSE UNSPECIFIED 03/13/2013 ROJAS DO, SIGIFREDO K 477.9 ALLERGIC RHINITIS CAUSE UNSPECIFIED 03/13/2013 ROJAS DO, SIGIFREDO K 477.9 ALLERGIC RHINITIS CAUSE UNSPECIFIED 03/13/2013 ROJAS DO, SIGIFREDO K 477.9 ALLERGIC RHINITIS CAUSE UNSPECIFIED 03/13/2013 ROJAS DO, SIGIFREDO K 477.9 ALLERGIC RHINITIS CAUSE UNSPECIFIED 03/13/2013 ROJAS DO, SIGIFREDO K 477.9 ALLERGIC RHINITIS CAUSE UNSPECIFIED 03/13/2013 ROJAS DO, SIGIFREDO K 477.9 ALLERGIC RHINITIS CAUSE UNSPECIFIED 03/13/2013 ROJAS DO, SIGIFREDO K 477.9 ALLERGIC RHINITIS CAUSE UNSPECIFIED 03/13/2013 ROJAS DO, SIGIFREDO K 477.9 ALLERGIC RHINITIS CAUSE UNSPECIFIED 03/13/2013 ROJAS DO, SIGIFREDO K 477.9 ALLERGIC RHINITIS CAUSE UNSPECIFIED 03/13/2013 ROJAS DO, SIGIFREDO K 477.9 ALLERGIC RHINITIS CAUSE UNSPECIFIED 03/13/2013 ROJAS DO, SIGIFREDO K 477.9 ALLERGIC RHINITIS CAUSE UNSPECIFIED 03/13/2013 ROJAS DO, SIGIFREDO K 477.9 ALLERGIC RHINITIS CAUSE UNSPECIFIED 03/13/2013 ROJAS DO, SIGIFREDO K 477.9 ALLERGIC RHINITIS CAUSE UNSPECIFIED 03/13/2013 ROJAS DO, SIGIFREDO K 477.9 ALLERGIC RHINITIS CAUSE UNSPECIFIED 03/13/2013 ROJAS DO, SIGIFREDO K 477.9 ALLERGIC RHINITIS CAUSE UNSPECIFIED 03/13/2013 ROJAS DO, SIGIFREDO K 477.9 ALLERGIC RHINITIS CAUSE UNSPECIFIED 03/13/2013 ROJAS DO, SIGIFREDO K 477.9 ALLERGIC RHINITIS CAUSE UNSPECIFIED 03/13/2013 ROJAS DO, SIGIFREDO K 477.9 ALLERGIC RHINITIS CAUSE UNSPECIFIED 03/13/2013 ROJAS DO, SIGIFREDO K 477.9 ALLERGIC RHINITIS CAUSE UNSPECIFIED 03/13/2013 ROJAS DO, SIGIFREDO K 477.9 ALLERGIC RHINITIS CAUSE UNSPECIFIED 03/13/2013 ROJAS DO, SIGIFREDO K 477.9 ALLERGIC RHINITIS CAUSE UNSPECIFIED 03/13/2013 ROJAS DO, SIGIFREDO K 477.9 ALLERGIC RHINITIS CAUSE UNSPECIFIED 03/13/2013 ROJAS DO, SIGIFREDO K 477.9 ALLERGIC RHINITIS CAUSE UNSPECIFIED 03/13/2013 ROJAS DO, SIGIFREDO K 477.9 ALLERGIC RHINITIS CAUSE UNSPECIFIED 03/13/2013 ROJAS DO, SIGIFREDO K 477.9 ALLERGIC RHINITIS CAUSE UNSPECIFIED 03/13/2013 ROJAS DO, SIGIFREDO K 477.9 ALLERGIC RHINITIS CAUSE UNSPECIFIED 03/13/2013 ROJAS DO, SIGIFREDO K 477.9 ALLERGIC RHINITIS CAUSE UNSPECIFIED 03/13/2013 ROJAS DO, SIGIFREDO K 477.9 ALLERGIC RHINITIS CAUSE UNSPECIFIED 05/02/2013 ROJAS DO, SIGIFREDO K V04.81 FLU SHOT 05/02/2013 ROJAS DO, SIGIFREDO K V04.81 FLU SHOT 05/02/2013 ROJAS DO, SIGIFREDO K V04.81 FLU SHOT 05/02/2013 ROJAS DO, SIGIFREDO K V04.81 FLU SHOT 05/02/2013 ROJAS DO, SIGIFREDO K V04.81 FLU SHOT 05/02/2013 ROJAS DO, SIGIFREDO K V04.81 FLU SHOT 05/02/2013 ROJAS DO, SIGIFREDO K V04.81 FLU SHOT 05/02/2013 ROJAS DO, SIGIFREDO K V04.81 FLU SHOT 05/02/2013 ROJAS DO, SIGIFREDO K V04.81 FLU SHOT 05/02/2013 ROJAS DO, SIGIFREDO K V04.81 FLU SHOT 05/02/2013 ROJAS DO, SIGIFREDO K V04.81 FLU SHOT 05/02/2013 ROJAS DO, SIGIFREDO K V04.81 FLU SHOT 05/02/2013 ROJAS DO, SIGIFREDO K V04.81 FLU SHOT 05/02/2013 ROJAS DO, SIGIFREDO K V04.81 FLU SHOT 05/02/2013 ROJAS DO, SIIGFREDO K V04.81 FLU SHOT 05/02/2013 ROJAS DO, SIGIFREDO K V04.81 FLU SHOT 05/02/2013 ROJAS DO, SIGIFREDO K V04.81 FLU SHOT 05/02/2013 ROJAS DO, SIGIFREDO K V04.81 FLU SHOT 05/02/2013 ROJAS DO, SIGIFREDO K V04.81 FLU SHOT 05/02/2013 ROJAS DO, SIGIFREDO K V04.81 FLU SHOT 05/02/2013 ROJAS DO, SIGIFREDO K V04.81 FLU SHOT 05/02/2013 ROJAS DO, SIGIFREDO K V04.81 FLU SHOT 05/02/2013 ROJAS DO, SIGIFREDO K V04.81 FLU SHOT 05/02/2013 ROJAS DO, SIGIFREDO K V04.81 FLU SHOT 05/02/2013 ROJAS DO, SIGIFREDO K V04.81 FLU SHOT 05/02/2013 ROJAS DO, SIGIFREDO K V04.81 FLU SHOT 05/02/2013 ROJAS DO, SIGIFREDO K V04.81 FLU SHOT 05/02/2013 ROJAS DO, SIGIFREDO K V04.81 FLU SHOT 05/02/2013 ROJAS DO, SIGIFREDO K V04.81 FLU SHOT 05/02/2013 ROJAS DO, SIGIFREDO K V04.81 FLU SHOT 05/02/2013 ROJAS DO, SIGIFREDO K V04.81 FLU SHOT 05/02/2013 ROJAS DO, SIGIFREDO K V04.81 FLU SHOT 05/02/2013 ROJAS DO, SIGIFREDO K V04.81 FLU SHOT 05/02/2013 ROJAS DO, SIGIFREDO K V04.81 FLU SHOT 05/02/2013 ROJAS DO, SIGIFREDO K V04.81 FLU SHOT 05/02/2013 ROJAS DO, SIGIFREDO K V04.81 FLU SHOT 05/02/2013 ROJAS DO, SIGIFREDO K V04.81 FLU SHOT 05/02/2013 ROJAS DO, SIGIFREDO K V04.81 FLU SHOT 05/02/2013 ROJAS DO, SIGIFREDO K V04.81 FLU SHOT 05/02/2013 ROJAS DO, SIGIFREDO K V04.81 FLU SHOT 05/02/2013 ROJAS DO, SIGIFREDO K V04.81 FLU SHOT 09/12/2013 ROJAS DO, SIGIFREDO K V05.8 ZOSTAVAX DX 09/12/2013 ROJAS DO, SIGIFREDO K V05.8 ZOSTAVAX DX 09/12/2013 ROJAS DO, SIGIFREDO K V05.8 ZOSTAVAX DX 09/12/2013 ROJAS DO, SIGIFREDO K V05.8 ZOSTAVAX DX 09/12/2013 ROJAS DO, SIGIFREDO K V05.8 ZOSTAVAX DX 09/12/2013 ROJAS DO, SIGIFREDO K V05.8 ZOSTAVAX DX 09/12/2013 ROJAS DO, SIGIFREDO K V05.8 ZOSTAVAX DX 09/12/2013 ROJAS DO, SIGIFREDO K V05.8 ZOSTAVAX DX 09/12/2013 ROJAS DO, SIGIFREDO K V05.8 ZOSTAVAX DX 09/12/2013 ROJAS DO, SIGIFREDO K V05.8 ZOSTAVAX DX 09/12/2013 ROJAS DO, SIGIFREDO K V05.8 ZOSTAVAX DX 09/12/2013 ROJAS DO, SIGIFREDO K V05.8 ZOSTAVAX DX 09/12/2013 ROJAS DO, SIGIFREDO K V05.8 ZOSTAVAX DX 09/12/2013 ROJAS DO, SIGIFREDO K V05.8 ZOSTAVAX DX 09/12/2013 ROJAS DO, SIGIFREDO K V05.8 ZOSTAVAX DX 09/12/2013 ROJAS DO, SIGIFREDO K V05.8 ZOSTAVAX DX 09/12/2013 ROJAS DO, SIGIFREDO K V05.8 ZOSTAVAX DX 09/12/2013 ROJAS DO, SIGIFREDO K V05.8 ZOSTAVAX DX 09/12/2013 ROJAS DO, SIGIFREDO K V05.8 ZOSTAVAX DX 09/12/2013 ROJAS DO, SIGIFREDO K V05.8 ZOSTAVAX DX 09/12/2013 ROJAS DO, SIGIFREDO K V05.8 ZOSTAVAX DX 09/12/2013 ROJAS DO, SIGIFREDO K V05.8 ZOSTAVAX DX 09/12/2013 ROJAS DO, SIGIFREDO K V05.8 ZOSTAVAX DX 09/12/2013 ROJAS DO, SIGIFREDO K V05.8 ZOSTAVAX DX 09/12/2013 ROJAS DO, SIGIFREDO K V05.8 ZOSTAVAX DX 09/12/2013 ROJAS DO, SIGIFREDO K V05.8 ZOSTAVAX DX 09/12/2013 ROJAS DO, SIGIFREDO K V05.8 ZOSTAVAX DX 09/12/2013 ROJAS DO, SIGIFREDO K V05.8 ZOSTAVAX DX 09/12/2013 ROJAS DO, SIGIFREDO K V05.8 ZOSTAVAX DX 09/12/2013 ROJAS DO, SIGIFREDO K V05.8 ZOSTAVAX DX 09/12/2013 ROJAS DO, SIGIFREDO K V05.8 ZOSTAVAX DX 09/12/2013 ROJAS DO, SIGIFREDO K V05.8 ZOSTAVAX DX 09/12/2013 ROJAS DO, SIGIFREDO K V05.8 ZOSTAVAX DX 11/08/2013 ROJAS DO, SIGIFREDO K 733.92 CHONDROMALACIA 11/08/2013 ROJAS DO, SIGIFREDO K 733.92 CHONDROMALACIA 11/08/2013 ROJAS DO, SIGIFREDO K 733.92 CHONDROMALACIA 11/08/2013 ROJAS DO, SIGIFREDO K 733.92 CHONDROMALACIA 11/08/2013 ROJAS DO, SIGIFREDO K 733.92 CHONDROMALACIA 11/08/2013 ROJAS DO, SIGIFREDO K 733.92 CHONDROMALACIA 11/08/2013 ROJAS DO, SIGIFREDO K 733.92 CHONDROMALACIA 11/08/2013 ROJAS DO, SIGIFREDO K 733.92 CHONDROMALACIA 11/08/2013 ROJAS DO, SIGIFREDO K 733.92 CHONDROMALACIA 11/08/2013 ROJAS DO, SIGIFREDO K 733.92 CHONDROMALACIA 11/08/2013 ROJAS DO, SIGIFREDO K 733.92 CHONDROMALACIA 11/08/2013 ROJAS DO, SIGIFREDO K 733.92 CHONDROMALACIA 11/08/2013 ROJAS DO, SIGIFREDO K 733.92 CHONDROMALACIA 11/08/2013 ROJAS DO, SIGIFREDO K 733.92 CHONDROMALACIA 11/08/2013 ROJAS DO, SIGIFREDO K 733.92 CHONDROMALACIA 11/08/2013 ROJAS DO, SIGIFREDO K 733.92 CHONDROMALACIA 11/08/2013 ROJAS DO, SIGIFREDO K 733.92 CHONDROMALACIA 11/08/2013 ROJAS DO, SIGIFREDO K 733.92 CHONDROMALACIA 11/08/2013 ROJAS DO, SIGIFREDO K 733.92 CHONDROMALACIA 11/08/2013 ROJAS DO, SIGIFREDO K 733.92 CHONDROMALACIA 11/08/2013 ROJAS DO, SIGIFREDO K 733.92 CHONDROMALACIA 11/08/2013 ROJAS DO, SIGIFREDO K 733.92 CHONDROMALACIA 11/08/2013 ROJAS DO, SIGIFREDO K 733.92 CHONDROMALACIA 04/19/2016 Ot V76.12 OTH SCREEN MAMMO-MALIGN NEOPLASM OF [place] 04/19/2016 Ot 486 PNEUMONIA, ORGANISM NOS 04/19/2016 Ot 780.79 OTH MALAISE FATIGUE 04/19/2016 Ot 719.40 JOINT PAIN- UNSPEC 04/19/2016 Ot 780.79 OTH MALAISE FATIGUE 04/19/2016 RUBIN CERRATO, SHOSHANA R Ot V76.12 OTH SCREEN MAMMO-MALIGN NEOPLASM OF [place] 04/19/2016 SHOSHANA CONKLIN MD R Ot V76.12 OTH SCREEN MAMMO-MALIGN NEOPLASM OF [place] 04/20/2016 Ot V76.12 OTH SCREEN MAMMO-MALIGN NEOPLASM OF [place] 04/20/2016 Ot 486 PNEUMONIA, ORGANISM NOS 04/20/2016 Ot 780.79 OTH MALAISE FATIGUE 04/20/2016 Ot 719.40 JOINT PAIN- UNSPEC 04/20/2016 Ot 780.79 OTH MALAISE FATIGUE 04/20/2016 SHOSHANA CONKLIN MD R Ot V76.12 OTH SCREEN MAMMO-MALIGN NEOPLASM OF [place] 04/20/2016 SHOSHANA CONKLIN MD R Ot V76.12 OTH SCREEN MAMMO-MALIGN NEOPLASM OF [place] 04/20/2016 TEO BARRIENTOS N DYE HOUSE HAND Ot Z12.31 ENCNTR SCREEN MAMMOGRAM FOR MALIGNANT NE 04/21/2016 TEO BARRIENTOS DYE HOUSE HAND Ot Z12.31 ENCNTR SCREEN MAMMOGRAM FOR MALIGNANT NE 05/04/2016 TEO BARRIENTOS DYE HOUSE HAND Ot Z12.31 ENCNTR SCREEN MAMMOGRAM FOR MALIGNANT NE 07/04/2016 Ot V76.12 OTH SCREEN MAMMO-MALIGN NEOPLASM OF [place] 07/04/2016 Ot 486 PNEUMONIA, ORGANISM NOS 07/04/2016 Ot 780.79 OTH MALAISE FATIGUE 07/04/2016 Ot 719.40 JOINT PAIN- UNSPEC 07/04/2016 Ot 780.79 OTH MALAISE FATIGUE 07/04/2016 RUBIN CERRATO, SHOSHANA R Ot V76.12 OTH SCREEN MAMMO-MALIGN NEOPLASM OF [place] 07/04/2016 RUBIN CERRATO, SHOSHANA R Ot V76.12 OTH SCREEN MAMMO-MALIGN NEOPLASM OF [place] 07/04/2016 TEO BARRIENTOS N DYE HOUSE HAND Ot Z12.31 ENCNTR SCREEN MAMMOGRAM FOR MALIGNANT NE 07/07/[address] MD Ot A08.4 VIRAL INTESTINAL INFECTION, UNSPECIFIED 07/07/[address] MD Ot E03.9 HYPOTHYROIDISM, UNSPECIFIED 07/07/[address] MD Ot E87.1 HYPO-OSMOLALITY AND HYPONATREMIA 07/07/[address] MD Ot J18.9 PNEUMONIA, UNSPECIFIED ORGANISM 07/07/[address] MD Ot J47.0 BRONCHIECTASIS WITH ACUTE LOWER RESPIRAT 07/08/[address] MD Ot A08.4 VIRAL INTESTINAL INFECTION, UNSPECIFIED 07/08/[address] MD Ot E03.9 HYPOTHYROIDISM, UNSPECIFIED 07/08/[address] MD M Ot E87.1 HYPO-OSMOLALITY AND HYPONATREMIA 07/08/[address] MD Ot J18.9 PNEUMONIA, UNSPECIFIED ORGANISM 07/08/[address] MD M Ot J47.0 BRONCHIECTASIS WITH ACUTE LOWER RESPIRAT 07/09/[address] MD Ot A08.4 VIRAL INTESTINAL INFECTION, UNSPECIFIED 07/09/[address] MD Ot E03.9 HYPOTHYROIDISM, UNSPECIFIED 07/09/[address] MD Ot E87.1 HYPO-OSMOLALITY AND HYPONATREMIA 07/09/[address] MD Ot J18.9 PNEUMONIA, UNSPECIFIED ORGANISM 07/09/[address] MD Ot J47.0 BRONCHIECTASIS WITH ACUTE LOWER RESPIRAT 07/09/2016 RAYNA CERRATO, BRANDO Davis Ot A08.4 VIRAL INTESTINAL INFECTION, UNSPECIFIED 07/09/2016 RAYNA CERRATO, BRANDO Davis Ot E03.9 HYPOTHYROIDISM, UNSPECIFIED 07/09/2016 RAYNA CERRATO, BRANDO Davis Ot E87.1 HYPO-OSMOLALITY AND HYPONATREMIA 07/09/[address] MD Ot J18.9 PNEUMONIA, UNSPECIFIED ORGANISM 07/09/2016 RAYNA CERRATO, BRANDO Davis Ot J47.0 BRONCHIECTASIS WITH ACUTE LOWER RESPIRAT 08/03/2016 Ot V49.81 08/03/2016 Ot V76.12 08/03/2016 Ot V82.81 08/03/2016 Ot V76.12 OTH SCREEN MAMMO-MALIGN NEOPLASM OF [place] 08/03/2016 Ot 611.89 OTHER SPECIFIED DISORDERS OF BREAST 08/03/2016 Ot V76.12 OTH SCREEN MAMMO-MALIGN NEOPLASM OF [place] 08/03/2016 Ot V76.12 OTH SCREEN MAMMO-MALIGN NEOPLASM OF [place] 08/03/2016 TEO BARRIENTOS DYE HOUSE HAND Ot Z12.31 ENCNTR SCREEN MAMMOGRAM FOR MALIGNANT NE 09/09/2016 TEO BARRIENTOS DYE HOUSE HAND Ot Z12.31 ENCNTR SCREEN MAMMOGRAM FOR MALIGNANT NE 09/09/2016 NANCY MARTINI DYE HOUSE HAND Ot R06.00 DYSPNEA, UNSPECIFIED 2016 NANCY MARTINI DYE HOUSE HAND Ot R06.00 DYSPNEA, UNSPECIFIED 09/13/2016 NANCY MARTINI DYE HOUSE HAND Ot R06.00 DYSPNEA, UNSPECIFIED 10/05/2016 NANCY MARTINI DYE HOUSE HAND Ot R06.00 DYSPNEA, UNSPECIFIED 10/05/2016 TEO BARRIENTOS DYE HOUSE HAND Ot Z12.31 ENCNTR SCREEN MAMMOGRAM FOR MALIGNANT NE 10/05/2016 NANCY MARTINI DYE HOUSE HAND Ot R06.00 DYSPNEA, UNSPECIFIED 10/06/2016 NANCY MARTINI DYE HOUSE HAND Ot G47.10 HYPERSOMNIA, UNSPECIFIED 10/06/2016 NANCY MARTINI DYE HOUSE HAND Ot G47.50 PARASOMNIA, UNSPECIFIED 10/06/2016 NANCY MARTINI DYE HOUSE HAND Ot G47.10 HYPERSOMNIA, UNSPECIFIED 10/06/2016 NANCY MARTINI APRN Ot G47.50 PARASOMNIA, UNSPECIFIED 11/01/2016 Ot V76.12 OTH SCREEN MAMMO-MALIGN NEOPLASM OF [place] 11/01/2016 Ot 486 PNEUMONIA, ORGANISM NOS 11/01/2016 Ot 780.79 OTH MALAISE FATIGUE 11/01/2016 Ot 719.40 JOINT PAIN- UNSPEC 11/01/2016 Ot 780.79 OTH MALAISE FATIGUE 11/01/2016 RUBIN CERRATO, SHOSHANA R Ot V76.12 OTH SCREEN MAMMO-MALIGN NEOPLASM OF [place] 11/01/2016 RUBIN CERRATO, SHOSHANA R Ot V76.12 OTH SCREEN MAMMO-MALIGN NEOPLASM OF [place] 11/01/2016 TEO BARRIENTOS APRN Ot Z12.31 ENCNTR SCREEN MAMMOGRAM FOR MALIGNANT NE 11/01/2016 NANCY MARTINI APRN Ot R06.00 DYSPNEA, UNSPECIFIED 11/04/2016 TEO BARRIENTOS APRN Ot Z12.31 ENCNTR SCREEN MAMMOGRAM FOR MALIGNANT NE 11/04/2016 NANCY MARTINI APRN Ot R06.00 DYSPNEA, UNSPECIFIED 11/08/2016 NANCY MARTINI APRN Ot J47.9 BRONCHIECTASIS, UNCOMPLICATED 11/08/2016 NANCY MARTINI APRN Ot R06.00 DYSPNEA, UNSPECIFIED 12/22/2016 NANCY MARTINI APRN Ot J47.9 BRONCHIECTASIS, UNCOMPLICATED 12/22/2016 NANCY MARTINI APRN Ot R06.00 DYSPNEA, UNSPECIFIED Procedures Code Description [place] [id number] STREP A (IN-HOUSE) 07/05/2012 JOINT INJECTION- LARGE JOINT (SPECIFY MEDCIN DESCRIPTION) 08/17/2012 J1040 DEPO MEDROL 80 MG INJ 08/17/2012 27444 JOINT INJECTION- LARGE JOINT (SPECIFY MEDCIN DESCRIPTION) 11/16/2012 J1040 DEPO MEDROL 80 MG INJ 11/16/2012 26080 IMMUNOTHERAPY INJECTIONS 11/29/2012 51729 IMMUNOTHERAPY INJECTIONS 12/30/2012 59321 IMMUNOTHERAPY INJECTIONS 03/15/2013 84116 IMMUNOTHERAPY INJECTIONS 03/29/2013 64308 IMMUNOTHERAPY INJECTIONS 04/23/2013 G0008 FLU ADMINISTRATION ( MEDICARE ONLY) 05/02/2013 72145 IMMUNOTHERAPY INJECTIONS 05/03/2013 58062 IMMUNOTHERAPY INJECTIONS 05/10/2013 35868 IMMUNOTHERAPY INJECTIONS 05/18/2013 96722 IMMUNOTHERAPY INJECTIONS 05/18/2013 93008 IMMUNOTHERAPY INJECTIONS 05/30/2013 78789 JOINT INJECTION- LARGE JOINT (SPECIFY MEDCIN DESCRIPTION) 05/31/2013 J1040 DEPO MEDROL 80 MG INJ 05/31/2013 68852 IMMUNOTHERAPY INJECTIONS 07/27/2013 59908 IMMUNOTHERAPY INJECTIONS 08/02/2013 62352 IMMUNOTHERAPY INJECTIONS 08/22/2013 33493 IMMUNOTHERAPY INJECTIONS 09/04/2013 27815 IMMUNOTHERAPY INJECTIONS 09/18/2013 90516 IMMUNOTHERAPY INJECTIONS 09/24/2013 25552 IMMUNOTHERAPY INJECTIONS 10/02/2013 64252 IMMUNOTHERAPY INJECTIONS 10/09/2013 24298 IMMUNOTHERAPY INJECTIONS 10/15/2013 54421 IMMUNOTHERAPY INJECTIONS 10/25/2013 03900 IMMUNOTHERAPY INJECTIONS 10/30/2013 91879 IMMUNOTHERAPY INJECTIONS 11/05/2013 87475 JOINT INJECTION- LARGE JOINT (SPECIFY MEDCIN DESCRIPTION) 11/08/2013 J1100 DEXAMETHASONE SODIUM PHOS, 1 MG 11/08/2013 12722 ROUTINE VENIPUNCTURE 11/14/2013 1529659 GFR CALC (RESULT ONLY) 11/14/2013 41081 CMP 11/14/2013 83025 LIPID PANEL 11/14/2013 24605 TSH 11/14/2013 03988 IMMUNOTHERAPY INJECTIONS 11/15/2013 86592 IMMUNOTHERAPY INJECTIONS 11/27/2013 18675 IMMUNOTHERAPY INJECTIONS 12/05/2013 23322 IMMUNOTHERAPY INJECTIONS 12/11/2013 59189 IMMUNOTHERAPY INJECTIONS 12/19/2013 63270 IMMUNOTHERAPY INJECTIONS 12/27/2013 73950 IMMUNOTHERAPY INJECTIONS 01/02/2014 36137 IMMUNOTHERAPY INJECTIONS 01/10/2014 49138 IMMUNOTHERAPY INJECTIONS 01/16/2014 25150 IMMUNOTHERAPY INJECTIONS 01/29/2014 73024 IMMUNOTHERAPY INJECTIONS 02/04/2014 51529 IMMUNOTHERAPY INJECTIONS 02/14/2014 91062 IMMUNOTHERAPY INJECTIONS 02/27/2014 03138 IMMUNOTHERAPY INJECTIONS 03/06/2014 98773 IMMUNOTHERAPY INJECTIONS 03/21/2014 97743 IMMUNOTHERAPY INJECTIONS 04/01/2014 56205 IMMUNOTHERAPY INJECTIONS 04/09/2014 99393 IMMUNOTHERAPY INJECTIONS 04/16/2014 88414 IMMUNOTHERAPY INJECTIONS 04/29/2014 24737 IMMUNOTHERAPY INJECTIONS 05/13/2014 42572 IMMUNOTHERAPY INJECTIONS 05/28/2014 Results Test Result Range Bacterial blood culture - 07/04/16 14:00 Bacterial blood culture NG NRG Complete blood count (CBC) with automated white blood cell (WBC) differential - 07/04/16 14:05 Blood leukocytes automated count (number/volume) 5.7 10*3/uL 4.3-11.0 Blood erythrocytes automated count (number/volume) 4.21 10*6/uL 4.35-5.85 Venous blood hemoglobin measurement (mass/volume) 13.6 g/dL 11.5-16.0 Blood hematocrit (volume fraction) 40 % 35-52 Automated erythrocyte mean corpuscular volume 94 [foz_us] 80-99 Automated erythrocyte mean corpuscular hemoglobin (mass per erythrocyte) 32 pg 25-34 Automated erythrocyte mean corpuscular hemoglobin concentration measurement ( mass/volume) 34 g/dL 32-36 Automated erythrocyte distribution width ratio 12.8 % 10.0-14.5 Automated blood platelet count (count/volume) 197 10*3/uL 130-400 Automated blood platelet mean volume measurement 10.5 [foz_us] 7.4-10.4 Automated blood neutrophils/100 leukocytes 89 % 42-75 Automated blood lymphocytes/100 leukocytes 5 % 12-44 Blood monocytes/100 leukocytes 5 % 0-12 Automated blood eosinophils/100 leukocytes 1 % 0-10 Automated blood basophils/100 leukocytes 0 % 0-10 Blood neutrophils automated count (number/volume) 5.1 10*3 1.8-7.8 Blood lymphocytes automated count (number/volume) 0.3 10*3 1.0-4.0 Blood monocytes automated count (number/volume) 0.3 10*3 0.0-1.0 Automated eosinophil count 0.0 10*3/uL 0.0-0.3 Automated blood basophil count (count/volume) 0.0 10*3/uL 0.0-0.1 Blood lactic acid measurement (moles/volume) - 07/04/16 14:05 Blood lactic acid measurement (moles/volume) 1.1 mmol/L 0.5-2.0 Comprehensive metabolic panel - 07/04/16 14:05 Serum or plasma sodium measurement (moles/volume) 129 mmol/L 135-145 Serum or plasma potassium measurement (moles/volume) 3.7 mmol/L 3.6-5.0 Serum or plasma chloride measurement (moles/volume) 101 mmol/L 98-107 Carbon dioxide 20 mmol/L 21-32 Serum or plasma anion gap determination (moles/volume) 8 mmol/L 5-14 Serum or plasma urea nitrogen measurement (mass/volume) 10 mg/dL 7-18 Serum or plasma creatinine measurement (mass/volume) 0.68 mg/dL 0.60-1.30 Serum or plasma urea nitrogen/creatinine mass ratio 15 NRG Serum or plasma creatinine measurement with calculation of estimated glomerular filtration rate > NRG Serum or plasma glucose measurement (mass/volume) 128 mg/dL 70-105 Serum or plasma calcium measurement (mass/volume) 8.1 mg/dL 8.5-10.1 Serum or plasma total bilirubin measurement (mass/volume) 0.4 mg/dL 0.1-1.0 Serum or plasma alkaline phosphatase measurement (enzymatic activity/volume) 64 U/L 40-136 Serum or plasma aspartate aminotransferase measurement (enzymatic activity/ volume) 21 U/L 5-34 Serum or plasma alanine aminotransferase measurement (enzymatic activity/volume ) 18 U/L 0-55 Serum or plasma protein measurement (mass/volume) 5.7 g/dL 6.4-8.2 Serum or plasma albumin measurement (mass/volume) 3.5 g/dL 3.2-4.5 Blood manual differential performed detection - 07/04/16 14:05 Manual blood segmented neutrophils/100 leukocytes 85 % NRG Blood band neutrophils/100 leukocytes 4 % NRG Manual blood lymphocytes/100 leukocytes 10 % NRG Manual eosinophils/100 leukocytes in nose 1 % NRG Blood erythrocyte morphology finding identification NORMAL NRG Bacterial blood culture - 07/04/16 14:05 Bacterial blood culture NG NRG Complete blood count (CBC) with automated white blood cell (WBC) differential - 07/05/16 05:46 Blood leukocytes automated count (number/volume) 3.1 10*3/uL 4.3-11.0 Blood erythrocytes automated count (number/volume) 3.94 10*6/uL 4.35-5.85 Venous blood hemoglobin measurement (mass/volume) 12.8 g/dL 11.5-16.0 Blood hematocrit (volume fraction) 38 % 35-52 Automated erythrocyte mean corpuscular volume 95 [foz_us] 80-99 Automated erythrocyte mean corpuscular hemoglobin (mass per erythrocyte) 33 pg 25-34 Automated erythrocyte mean corpuscular hemoglobin concentration measurement ( mass/volume) 34 g/dL 32-36 Automated erythrocyte distribution width ratio 12.8 % 10.0-14.5 Automated blood platelet count (count/volume) 177 10*3/uL 130-400 Automated blood platelet mean volume measurement 10.0 [foz_us] 7.4-10.4 Automated blood neutrophils/100 leukocytes 64 % 42-75 Automated blood lymphocytes/100 leukocytes 19 % 12-44 Blood monocytes/100 leukocytes 11 % 0-12 Automated blood eosinophils/100 leukocytes 6 % 0-10 Automated blood basophils/100 leukocytes 1 % 0-10 Blood neutrophils automated count (number/volume) 2.0 10*3 1.8-7.8 Blood lymphocytes automated count (number/volume) 0.6 10*3 1.0-4.0 Blood monocytes automated count (number/volume) 0.4 10*3 0.0-1.0 Automated eosinophil count 0.2 10*3/uL 0.0-0.3 Automated blood basophil count (count/volume) 0.0 10*3/uL 0.0-0.1 Comprehensive metabolic panel - 07/05/16 05:46 Serum or plasma sodium measurement (moles/volume) 133 mmol/L 135-145 Serum or plasma potassium measurement (moles/volume) 4.7 mmol/L 3.6-5.0 Serum or plasma chloride measurement (moles/volume) 105 mmol/L 98-107 Carbon dioxide 21 mmol/L 21-32 Serum or plasma anion gap determination (moles/volume) 7 mmol/L 5-14 Serum or plasma urea nitrogen measurement (mass/volume) 10 mg/dL 7-18 Serum or plasma creatinine measurement (mass/volume) 0.70 mg/dL 0.60-1.30 Serum or plasma urea nitrogen/creatinine mass ratio 14 NRG Serum or plasma creatinine measurement with calculation of estimated glomerular filtration rate > NRG Serum or plasma glucose measurement (mass/volume) 92 mg/dL 70-105 Serum or plasma calcium measurement (mass/volume) 8.1 mg/dL 8.5-10.1 Serum or plasma total bilirubin measurement (mass/volume) 0.4 mg/dL 0.1-1.0 Serum or plasma alkaline phosphatase measurement (enzymatic activity/volume) 60 U/L 40-136 Serum or plasma aspartate aminotransferase measurement (enzymatic activity/ volume) 23 U/L 5-34 Serum or plasma alanine aminotransferase measurement (enzymatic activity/volume ) 18 U/L 0-55 Serum or plasma protein measurement (mass/volume) 4.9 g/dL 6.4-8.2 Serum or plasma albumin measurement (mass/volume) 3.1 g/dL 3.2-4.5 Complete urinalysis with reflex to culture - 07/05/16 08:15 Urine color determination YELLOW NRG Urine clarity determination CLEAR NRG Urine pH measurement by test strip 6.5 5-9 Specific gravity of urine by test strip 1.005 1.016- 1.022 Urine protein assay by test strip, semi-quantitative NEGATIVE NEGATIVE Urine glucose detection by automated test strip NEGATIVE NEGATIVE Erythrocytes detection in urine sediment by light microscopy NEGATIVE NEGATIVE Urine ketones detection by automated test strip NEGATIVE NEGATIVE Urine nitrite detection by test strip NEGATIVE NEGATIVE Urine total bilirubin detection by test strip NEGATIVE NEGATIVE Urine urobilinogen measurement by automated test strip (mass/volume) NORMAL NORMAL Urine leukocyte esterase detection by dipstick NEGATIVE NEGATIVE Automated urine sediment erythrocyte count by microscopy (number/high power field) RARE NRG Automated urine sediment leukocyte count by microscopy (number/high power field ) NONE NRG Bacteria detection in urine sediment by light microscopy NEGATIVE NRG Squamous epithelial cells detection in urine sediment by light microscopy NONE NRG Crystals detection in urine sediment by light microscopy NONE NRG Casts detection in urine sediment by light microscopy NONE NRG Mucus detection in urine sediment by light microscopy NEGATIVE NRG Complete urinalysis with reflex to culture NO NRG Serum or plasma lithium measurement (moles/volume) - 07/05/16 09:40 BNP level 55.6 pg/mL <100.0 Influenza virus A and B antigen detection - 07/06/16 09:21 FLU RESULT NEGATIVE FOR INFLUENZA A AND B ANTIGENS BY IA NRG Complete blood count (CBC) with automated white blood cell (WBC) differential - 07/06/16 09:45 Blood leukocytes automated count (number/volume) 4.2 10*3/uL 4.3-11.0 Blood erythrocytes automated count (number/volume) 4.43 10*6/uL 4.35-5.85 Venous blood hemoglobin measurement (mass/volume) 14.2 g/dL 11.5-16.0 Blood hematocrit (volume fraction) 42 % 35-52 Automated erythrocyte mean corpuscular volume 94 [foz_us] 80-99 Automated erythrocyte mean corpuscular hemoglobin (mass per erythrocyte) 32 pg 25-34 Automated erythrocyte mean corpuscular hemoglobin concentration measurement ( mass/volume) 34 g/dL 32-36 Automated erythrocyte distribution width ratio 12.7 % 10.0-14.5 Automated blood platelet count (count/volume) 192 10*3/uL 130-400 Automated blood platelet mean volume measurement 9.9 [foz_us] 7.4-10.4 Automated blood neutrophils/100 leukocytes 50 % 42-75 Automated blood lymphocytes/100 leukocytes 29 % 12-44 Blood monocytes/100 leukocytes 15 % 0-12 Automated blood eosinophils/100 leukocytes 6 % 0-10 Automated blood basophils/100 leukocytes 1 % 0-10 Blood neutrophils automated count (number/volume) 2.1 10*3 1.8-7.8 Blood lymphocytes automated count (number/volume) 1.2 10*3 1.0-4.0 Blood monocytes automated count (number/volume) 0.6 10*3 0.0-1.0 Automated eosinophil count 0.3 10*3/uL 0.0-0.3 Automated blood basophil count (count/volume) 0.0 10*3/uL 0.0-0.1 Comprehensive metabolic panel - 07/06/16 09:45 Serum or plasma sodium measurement (moles/volume) 136 mmol/L 135-145 Serum or plasma potassium measurement (moles/volume) 3.8 mmol/L 3.6-5.0 Serum or plasma chloride measurement (moles/volume) 104 mmol/L 98-107 Carbon dioxide 22 mmol/L 21-32 Serum or plasma anion gap determination (moles/volume) 10 mmol/L 5-14 Serum or plasma urea nitrogen measurement (mass/volume) 4 mg/dL 7-18 Serum or plasma creatinine measurement (mass/volume) 0.70 mg/dL 0.60-1.30 Serum or plasma urea nitrogen/creatinine mass ratio 6 NRG Serum or plasma creatinine measurement with calculation of estimated glomerular filtration rate > NRG Serum or plasma glucose measurement (mass/volume) 93 mg/dL 70-105 Serum or plasma calcium measurement (mass/volume) 8.6 mg/dL 8.5-10.1 Serum or plasma total bilirubin measurement (mass/volume) 0.2 mg/dL 0.1-1.0 Serum or plasma alkaline phosphatase measurement (enzymatic activity/volume) 71 U/L 40-136 Serum or plasma aspartate aminotransferase measurement (enzymatic activity/ volume) 29 U/L 5-34 Serum or plasma alanine aminotransferase measurement (enzymatic activity/volume ) 20 U/L 0-55 Serum or plasma protein measurement (mass/volume) 5.9 g/dL 6.4-8.2 Serum or plasma albumin measurement (mass/volume) 3.6 g/dL 3.2-4.5 Complete blood count (CBC) with automated white blood cell (WBC) differential - 07/07/16 05:00 Blood leukocytes automated count (number/volume) 6.2 10*3/uL 4.3-11.0 Blood erythrocytes automated count (number/volume) 4.39 10*6/uL 4.35-5.85 Venous blood hemoglobin measurement (mass/volume) 14.1 g/dL 11.5-16.0 Blood hematocrit (volume fraction) 42 % 35-52 Automated erythrocyte mean corpuscular volume 95 [foz_us] 80-99 Automated erythrocyte mean corpuscular hemoglobin (mass per erythrocyte) 32 pg 25-34 Automated erythrocyte mean corpuscular hemoglobin concentration measurement ( mass/volume) 34 g/dL 32-36 Automated erythrocyte distribution width ratio 12.7 % 10.0-14.5 Automated blood platelet count (count/volume) 218 10*3/uL 130-400 Automated blood platelet mean volume measurement 11.1 [foz_us] 7.4-10.4 Automated blood neutrophils/100 leukocytes 57 % 42-75 Automated blood lymphocytes/100 leukocytes 23 % 12-44 Blood monocytes/100 leukocytes 12 % 0-12 Automated blood eosinophils/100 leukocytes 7 % 0-10 Automated blood basophils/100 leukocytes 1 % 0-10 Blood neutrophils automated count (number/volume) 3.5 10*3 1.8-7.8 Blood lymphocytes automated count (number/volume) 1.5 10*3 1.0-4.0 Blood monocytes automated count (number/volume) 0.7 10*3 0.0-1.0 Automated eosinophil count 0.4 10*3/uL 0.0-0.3 Automated blood basophil count (count/volume) 0.0 10*3/uL 0.0-0.1 Comprehensive metabolic panel - 07/07/16 05:00 Serum or plasma sodium measurement (moles/volume) 136 mmol/L 135-145 Serum or plasma potassium measurement (moles/volume) 4.4 mmol/L 3.6-5.0 Serum or plasma chloride measurement (moles/volume) 103 mmol/L 98-107 Carbon dioxide 24 mmol/L 21-32 Serum or plasma anion gap determination (moles/volume) 9 mmol/L 5-14 Serum or plasma urea nitrogen measurement (mass/volume) 5 mg/dL 7-18 Serum or plasma creatinine measurement (mass/volume) 0.70 mg/dL 0.60-1.30 Serum or plasma urea nitrogen/creatinine mass ratio 7 NRG Serum or plasma creatinine measurement with calculation of estimated glomerular filtration rate > NRG Serum or plasma glucose measurement (mass/volume) 88 mg/dL 70-105 Serum or plasma calcium measurement (mass/volume) 8.8 mg/dL 8.5-10.1 Serum or plasma total bilirubin measurement (mass/volume) 0.3 mg/dL 0.1-1.0 Serum or plasma alkaline phosphatase measurement (enzymatic activity/volume) 69 U/L 40-136 Serum or plasma aspartate aminotransferase measurement (enzymatic activity/ volume) 28 U/L 5-34 Serum or plasma alanine aminotransferase measurement (enzymatic activity/volume ) 21 U/L 0-55 Serum or plasma protein measurement (mass/volume) 5.9 g/dL 6.4-8.2 Serum or plasma albumin measurement (mass/volume) 3.7 g/dL 3.2-4.5 Encounters ACCT No. Visit Date/Time Discharge Status Pt. Type Provider Facility Loc./Unit Complaint [id number] 11/05/2016 15:29:00 11/05/2016 23:59:59 CLS Outpatient NANCY MARTINI APRN [facility] [address] RT R06.00 [id number] 10/05/2016 19:55:00 10/06/2016 06:05:00 DIS Outpatient NANCY MARTINI APRN [facility] [address] SLEEP HYPERSOMNIA, PARASOMNIA,SLEEP DISORDER [id number] 09/09/2016 13:38:00 09/09/2016 23:59:59 CLS Outpatient NANCY MARTINI APRN [facility] [address] RAD DYSPNEA [id number] 07/06/2016 09:30:00 07/08/2016 12:20:[address]ANDO WAY MD [facility] [address] 4TH GASTROENTERITIS, WEAKNESS [id number] 04/19/2016 14:58:00 04/19/2016 23:59:59 CLS Outpatient TEO BARRIENTOS APRN [facility] [address] RAD SCREENING [id number] 01/04/2014 10:04:00 01/04/2014 23:59:59 CLS Outpatient SHOSHANA CONKLIN MD [facility] [address] RAD SCREENING [id number] 11/10/2012 14:33:00 11/10/2012 23:59:59 CLS Outpatient SHOSHANA CONKLIN MD [facility] [address] RAD MAMMO [id number] 07/24/2017 10:32:00 ACT Emergency KATJA ACUÑA MD [facility] [address] ER SYNCOPE/CONGESTION [id number] 08/03/2016 15:15:00 Document Registration [id number] 08/03/2016 15:15:00 Document Registration [id number] 06/05/2012 14:27:00 Document Registration [id number] 04/03/2012 10:41:00 Document Registration [id number] 03/21/2012 16:31:00 Document Registration [id number] 03/17/2012 16:35:00 Document Registration [id number] 03/12/2012 11:59:00 Document Registration [id number] 10/08/2011 13:09:00 Document Registration [id number] 08/07/2010 15:19:00 Document Registration [id number] 06/20/2009 15:17:00 Document Registration [id number] 04/30/2008 07:54:00 Document Registration [id number] 05/28/2014 08:59:00 05/28/2014 23:59:59 CLS Outpatient SIGIFREDO ROJAS DO [id number] 05/13/2014 10:10:00 05/13/2014 23:59:59 CLS Outpatient SIGIFREDO ROJAS DO [id number] 04/29/2014 11:44:00 04/29/2014 23:59:59 CLS Outpatient SIGIFREDO ROJAS DO [id number] 04/16/2014 12:51:00 04/16/2014 23:59:59 CLS Outpatient SIGIFREDO ROJAS DO [id number] 04/09/2014 09:51:00 04/09/2014 23:59:59 CLS Outpatient SIGIFREDO ROJAS DO [id number] 04/01/2014 09:12:00 04/01/2014 23:59:59 CLS Outpatient ROJAS DO, SIGIFREDO Pisano [id number] 03/21/2014 11:58:00 03/21/2014 23:59:59 CLS Outpatient ROJAS DO, SIGIFREDO Pisano [id number] 03/06/2014 10:29:00 03/06/2014 23:59:59 CLS Outpatient ROJAS DO, SIGIFREDO Pisano [id number] 02/27/2014 13:32:00 02/27/2014 23:59:59 CLS Outpatient ROJAS DO, SIGIFREDO Pisano [id number] 02/14/2014 12:56:00 02/14/2014 23:59:59 CLS Outpatient ROJAS DO, SIGIFREDO Pisano [id number] 02/04/2014 10:25:00 02/04/2014 23:59:59 CLS Outpatient ROJAS DO, SIGIFREDO Pisano [id number] 01/29/2014 09:07:00 01/29/2014 23:59:59 CLS Outpatient ROJAS DO, SIGIFREDO Pisano [id number] 01/16/2014 09:59:00 01/16/2014 23:59:59 CLS Outpatient ROJAS DO, SIGIFREDO Pisano [id number] 01/10/2014 15:07:00 01/10/2014 23:59:59 CLS Outpatient ROJAS DO, SIGIFREDO Pisano [id number] 01/02/2014 08:29:00 01/02/2014 23:59:59 CLS Outpatient ROJAS DO, SIGIFREDO Pisano [id number] 12/27/2013 11:07:00 12/27/2013 23:59:59 CLS Outpatient ROJAS DO, SIGIFREDO Pisano [id number] 12/19/2013 11:38:00 12/19/2013 23:59:59 CLS Outpatient ROJAS DO, SIGIFREDO Pisano [id number] 12/11/2013 13:49:00 12/11/2013 23:59:59 CLS Outpatient ROJAS DO, SIGIFREDO Pisano [id number] 12/05/2013 13:12:00 12/05/2013 23:59:59 CLS Outpatient ROJAS DO, SIGIFREDO Pisano [id number] 11/27/2013 11:36:00 11/27/2013 23:59:59 CLS Outpatient ROJAS DO, SIGIFREDO Pisano [id number] 11/15/2013 10:06:00 11/15/2013 23:59:59 CLS Outpatient ROJAS DO, SIGIFREDO Pisano [id number] 11/08/2013 15:10:00 11/08/2013 23:59:59 CLS Outpatient ROJAS DO, SIGIFREDO Pisano [id number] 11/08/2013 15:10:00 11/08/2013 23:59:59 CLS Outpatient ROJAS DO, SIGIFREDO Pisano [id number] 11/05/2013 14:11:00 11/05/2013 23:59:59 CLS Outpatient ROJAS DO, SIGIFREDO Pisano [id number] 10/30/2013 10:11:00 10/30/2013 23:59:59 CLS Outpatient ROJAS DO, SIGIFREDO Pisano [id number] 10/25/2013 11:21:00 10/25/2013 23:59:59 CLS Outpatient ROJAS DO, SIGIFREDO Pisano [id number] 10/15/2013 13:23:00 10/15/2013 23:59:59 CLS Outpatient ROJAS DO, SIGIFREDO Pisano [id number] 10/09/2013 13:26:00 10/09/2013 23:59:59 CLS Outpatient ROJAS DO, SIGIFREDO Pisano [id number] 10/02/2013 11:27:00 10/02/2013 23:59:59 CLS Outpatient ROJAS DO, SIGIFREDO Pisano [id number] 09/24/2013 14:14:00 09/24/2013 23:59:59 CLS Outpatient ROJAS DO, SIGIFREDO Pisano [id number] 09/18/2013 12:56:00 09/18/2013 23:59:59 CLS Outpatient ROJAS DO, SIGIFREDO Pisano [id number] 09/17/2013 07:36:00 09/17/2013 23:59:59 CLS Outpatient ROJAS DO, SIGIFREDO Pisano [id number] 09/04/2013 11:52:00 09/04/2013 23:59:59 CLS Outpatient ROJAS DO, SIGIFREDO Pisano [id number] 08/22/2013 10:40:00 08/22/2013 23:59:59 CLS Outpatient ROJAS DO, SIGIFREDO Pisano [id number] 08/02/2013 13:30:00 08/02/2013 23:59:59 CLS Outpatient ROJAS DO, SIGIFREDO Pisano [id number] 07/27/2013 10:51:00 07/27/2013 23:59:59 CLS Outpatient ROJAS DO, SIGIFREDO Pisano [id number] 05/31/2013 11:33:00 05/31/2013 23:59:59 CLS Outpatient ROJAS DO, SIGIFREDO Pisano [id number] 05/30/2013 11:50:00 05/30/2013 23:59:59 CLS Outpatient CRYSTAL DOSIIGFREDO [id number] 05/18/2013 08:52:00 05/18/2013 23:59:59 CLS Outpatient CRYSTAL DOSIGIFREDO [id number] 05/10/2013 13:03:00 05/10/2013 23:59:59 CLS Outpatient CRYSTAL DOSIGIFREDO [id number] 05/03/2013 14:47:00 05/03/2013 23:59:59 CLS Outpatient CRYSTAL DOSIGIFREDO [id number] 04/23/2013 10:28:00 04/23/2013 23:59:59 CLS Outpatient CRYSTAL DOSIGIFREDO [id number] 03/29/2013 13:36:00 03/29/2013 23:59:59 CLS Outpatient ROJAS DOSIGIFREDO [id number] 08/17/2012 14:54:00 08/17/2012 23:59:59 CLS Outpatient [id number] 07/05/2012 14:09:00 07/05/2012 23:59:59 CLS Outpatient [id number] 03/15/2013 16:16:00 Document Registration [id number] 02/28/2013 10:36:00 Document Registration [id number] 12/30/2012 08:45:00 Document Registration [id number] 11/29/2012 12:54:00 Document Registration [id number] 11/16/2012 12:09:00 Document Registration
[2017-07-24 11:30] VITALS: BP_SYST 128; BP_SYST 156; BP_DIAS 80; BP_DIAS 94
[2017-07-24 11:50] LABS: BILIRUBIN,URINE NEGATIVE (NEGATIVE); CLARITY,URINE CLEAR; COLOR,URINE YELLOW; GLUCOSE, URINE (UA) NEGATIVE (NEGATIVE); KETONES,URINE NEGATIVE (NEGATIVE); LEUKOCYTE ESTERASE ,URINE NEGATIVE (NEGATIVE); NITRITE,URINE NEGATIVE (NEGATIVE); PH,URINE 7 (5-9); PROTEIN,URINE NEGATIVE (NEGATIVE); UROBILINOGEN,URINE NORMAL (NORMAL)
[2017-07-24 11:55] LABS: BACTERIA,URINE TRACE /HPF
--- NOTE | 2017-07-24 12:32 | Diagnostic Imaging Report ---
INDICATION: Cough and congestion. COMPARISON: 07/04/16 FINDINGS: Single view of the chest demonstrates hilar infiltrates with basilar atelectasis. There is no pneumothorax. The heart is prominent without pulmonary edema. IMPRESSION: Hilar infiltrate with bibasilar atelectasis. Followup recommended. Dictated by: Dictated on workstation # [id number]
--- NOTE | 2017-07-24 12:40 | ED Syncope ---
General Chief Complaint: Dizziness/Syncope Stated Complaint: SYNCOPE/CONGESTION Nursing Triage Note: Patient advises she went to [facility] this morning and as she was leaving to go to the grocery store with her son when she felt as though she was having a hot flash and had a syncopal episode short after. She denies falling and states her son caught her. Source of Information: Patient Exam Limitations: No Limitations History of Present Illness Time Seen by Provider: 11:44 Initial Comments Sr. Palacios presents to the emergency room with complaints of a syncopal episode that happened earlier in the day. Patient had eaten a banana for breakfast and then went to [facility]. She was kneeling at prior time when she suddenly felt a hot flash with lightheadedness and then proceeded to have a syncopal episode. She was caught by those near her and did not fall or suffer any injury. She had loss of consciousness for less than one minute. She has felt well since then with the exception of slight headache and feeling tired. She then went to breakfast after [facility]. She then decided to present to the emergency room for evaluation. She reports having a upper respiratory infection or bronchitis about 3 weeks ago. She was evaluated at [facility] and chest x-ray was performed. She believes that x-ray was normal. However, she was prescribed antibiotics due to her history of multiple episodes of pneumonia. Patient denies any history of other cardiopulmonary problems. Allergies and Home Medications Allergies Coded Allergies: No Known Drug Allergies (Unverified , 07/04/16) Home Medications Ascorbate Calcium 500 Mg Tablet, 500 MG PO DAILY, (Reported) Aspirin/Acetaminophen/Caffeine 1 Each Tablet, 1 TAB PO BID PRN for PAIN, ( Reported) Azithromycin 500 Mg Tablet, 500 MG PO DAILY, #5 Prescribed by: NESSA BEDOLLA on 07/08/16 1002 Calcium Carbonate/Vitamin D3 1 Each Tablet, 1 TAB PO DAILY, (Reported) Cefdinir 300 Mg Capsule, 300 MG PO BID, #10 Prescribed by: NESSA BEDOLLA on 07/08/16 1002 Cetirizine HCl 10 Mg Capsule, 10 MG PO DAILY PRN for ALLERGIES, (Reported) Cholecalciferol (Vitamin D3) 1,000 Unit Capsule, 1,000 UNIT PO DAILY, (Reported) Doxycycline Hyclate 100 Mg Tablet, 100 MG PO BID, #20 Prescribed by: KATJA WALKER on 07/24/17 1457 Fluticasone Propionate 16 Gm [place].susp, 2 SPRAYS NS DAILY, (Reported) Levothyroxine Sodium 50 Mcg Tablet, 50 MCG PO DAILY, (Reported) Mu-Vits-Min Th/Lycopene/Lutein 1 Each Tablet, 1 TAB PO DAILY, (Reported) [place]-3 Fatty Acids/Fish Oil 1 Each Capsule, 1,000 MG PO DAILY, (Reported) Omeprazole 20 Mg Tablet.dr, 20 MG PO DAILY, #30 Prescribed by: NESSA BEDOLLA on 07/08/16 1002 Ondansetron 8 Mg Tab.rapdis, 8 MG PO Q6H PRN for NAUSEA, #20 Prescribed by: NESSA BEDOLLA on 07/08/16 1002 Propylene Glycol 10 Ml Drops, 1 DROP OU Q4H PRN for DRY EYES, (Reported) Vitamin B Complex 1 Each Capsule, 1 CAP PO DAILY, (Reported) Constitutional: see HPI EENTM: no symptoms reported Respiratory: no symptoms reported Cardiovascular: see HPI Gastrointestinal: no symptoms reported Genitourinary: no symptoms reported : No Musculoskeletal: no symptoms reported Skin: no symptoms reported Psychiatric/Neurological: No Symptoms Reported Past Eontzqn-Mldgvf-Wityza Hx Patient Social History Alcohol Use: Denies Use Recreational Drug Use: No Smoking Status: Never a Smoker Recent Foreign Travel: No Contact w/Someone Who Travel: No Recent Infectious Disease Expo: No Recent Hopitalizations: No Physical Abuse: No Sexual Abuse: No Immunizations Up To Date Tetanus Booster (TDap): Unknown Date of Pneumonia Vaccine: Jul 11, 2012 Date of Influenza Vaccine: Apr 26, 2016 Seasonal Allergies Seasonal Allergies: Yes (Receives allergy injections) Surgeries History of Surgeries: Yes (TONSILLECTOMY 1948 HYSTERECTOMY 1985) Surgeries: Appendectomy Respiratory History of Respiratory Disorde: Yes (HX OF SEVERAL PNEUMONIA'S ) Respiratory Disorders: Pneumonia Currently Using CPAP: No Currently Using BIPAP: No Cardiovascular History of Cardiac Disorders: No Neurological History of Neurological Disord: No Reproductive System : No Hx Reproductive Disorders: No Genitourinary History of Genitourinary Disor: No Gastrointestinal History of Gastrointestinal Di: No Musculoskeletal History of Musculoskeletal Dis: No Endocrine History of Endocrine Disorders: Yes Endocrine Disorders: Hypothyroidsim Cancer History of Cancer: No Psychosocial History of Psychiatric Problem: No Suicide Risk Score: 0 Integumentary History of Skin or Integumenta: No Blood Transfusions History of Blood Disorders: No Family Medical History Family Medial History: Neoplasm 19 MOTHER (BRAIN TUMOR) Parkinson's disease 19 FATHER G8 SISTER Physical Exam Vital Signs Vital Sign - Last 12Hours 07/24/17 11:13 Temp 98.4 Pulse 69 Resp 14 B/P (MAP) 156/80 (105) Pulse Ox 98 O2 Delivery Room Air Capillary Refill : Less Than 3 Seconds General Appearance: No Apparent Distress, Thin HEENT: PERRL/EOMI, Normal ENT Inspection, Pharynx Normal Neck: Normal Inspection, Supple, No Carotid Bruit, No JVD Cardiovascular: Regular Rate, Rhythm, No Edema, No Murmur, Normal Peripheral Pulses Respiratory: Lungs Clear, Normal Breath Sounds, No Accessory Muscle Use, No Respiratory Distress Gastrointestinal: Normal Bowel Sounds, Non Tender, Soft Extremities: Normal Capillary Refill, Normal Inspection, Non Tender, No Pedal Edema Neurologic/Psychiatric: Alert, Oriented x3, No Motor/Sensory Deficits, Normal Mood/Affect, news anchor II-XII Norm as Tested Cranial Nerves: Normal Hearing, Normal Speech, PERRL Motor/Sensory: No Motor Deficit, No Sensory Deficit Skin: Normal Color, Warm/Dry Progress/Results/Core Measures Results/Orders Lab Results Laboratory Tests Test 07/24/17 11:20 07/24/17 12:44 Range/Units Urine Color YELLOW Urine Clarity CLEAR Urine pH 7 5-9 Urine Specific [place] 1.005 L 1.016-1.022 Urine Protein NEGATIVE NEGATIVE Urine Glucose (UA) NEGATIVE NEGATIVE Urine Ketones NEGATIVE NEGATIVE Urine Nitrite NEGATIVE NEGATIVE Urine Bilirubin NEGATIVE NEGATIVE Urine Urobilinogen NORMAL NORMAL MG/DL Urine Leukocyte Esterase NEGATIVE NEGATIVE Urine RBC (Auto) NEGATIVE NEGATIVE Urine RBC NONE /HPF Urine WBC NONE /HPF Urine Crystals NONE /LPF Urine Bacteria TRACE /HPF Urine Casts NONE /LPF Urine Mucus NEGATIVE /LPF Urine Culture Indicated NO White Blood Count 5.2 4.3-11.0 10^3/uL Red Blood Count 4.35 4.35-5.85 10^6/uL Hemoglobin 14.1 11.5-16.0 G/DL Hematocrit 41 35-52 % Mean Corpuscular Volume 95 80-99 FL Mean Corpuscular Hemoglobin 32 25-34 PG Mean Corpuscular Hemoglobin Concent 34 32-36 G/DL Red Cell Distribution Width 12.9 10.0-14.5 % Platelet Count 265 130-400 10^3/uL Mean Platelet Volume 9.9 7.4-10.4 FL Neutrophils (%) (Auto) 51 42-75 % Lymphocytes (%) (Auto) 35 12-44 % Monocytes (%) (Auto) 8 0-12 % Eosinophils (%) (Auto) 4 0-10 % Basophils (%) (Auto) 1 0-10 % Neutrophils # (Auto) 2.6 1.8-7.8 X 10^3 Lymphocytes # (Auto) 1.8 1.0-4.0 X 10^3 Monocytes # (Auto) 0.4 0.0-1.0 X 10^3 Eosinophils # (Auto) 0.2 0.0-0.3 10^3/uL Basophils # (Auto) 0.1 0.0-0.1 10^3/uL Prothrombin Time 13.9 12.2-14.7 SEC INR Comment 1.1 0.8-1.4 Activated Partial Thromboplast Time 28 24-35 SEC Sodium Level 140 135-145 MMOL/L Potassium Level 4.4 3.6-5.0 MMOL/L Chloride Level 106 98-107 MMOL/L Carbon Dioxide Level 25 21-32 MMOL/L Anion Gap 9 5-14 MMOL/L Blood Urea Nitrogen 12 7-18 MG/DL Creatinine 0.79 0.60-1.30 MG/DL Estimat Glomerular Filtration Rate > 60 BUN/Creatinine Ratio 15 Glucose Level 98 70-105 MG/DL Calcium Level 9.4 8.5-10.1 MG/DL Magnesium Level 2.3 1.8-2.4 MG/DL Total Bilirubin 0.3 0.1-1.0 MG/DL Aspartate Amino Transf (AST/SGOT) 22 5-34 U/L Alanine Aminotransferase (ALT/SGPT) 17 0-55 U/L Alkaline Phosphatase 74 40-136 U/L Myoglobin 50.7 10.0-92.0 NG/ML Troponin I < 0.30 <0.30 NG/ML Total Protein 6.4 6.4-8.2 GM/DL Albumin 3.9 3.2-4.5 GM/DL Thyroid Stimulating Hormone (TSH) 1.22 0.35-4.94 UIU/ML Free Thyroxine 1.09 0.70-1.48 NG/DL My Orders Orders - KATJA ACUÑA MD Cbc With Automated Diff (07/24/17 11:45) Magnesium (07/24/17 11:45) Chest 1 View, Ap/Pa Only (07/24/17 11:45) Ekg Tracing (07/24/17 11:45) Cardiac Profile 1 (07/24/17 11:45) Comprehensive Metabolic Panel (07/24/17 11:45) Myoglobin Serum (07/24/17 11:45) Protime With Inr (07/24/17 11:45) Partial Thromboplastin Time (07/24/17 11:45) O2 (07/24/17 11:45) Monitor-Rhythm Ecg Trace Only (07/24/17 11:45) Saline Lock/Iv-Start (07/24/17 11:45) Ua Culture If Indicated (07/24/17 11:45) Thyroid Stimulating Hormone (07/24/17 12:29) Free T4 (Free Thyroxine) (07/24/17 12:29) Vital Signs/I&O Vital Sign - Last 12Hours 07/24/17 07/24/17 07/24/17 11:13 11:30 15:21 Temp 98.4 Pulse 69 69 81 82 80 Resp 14 14 B/P (MAP) 156/80 (105) 156/80 (105) 156/94 (114) 128/80 (96) Pulse Ox 98 98 O2 Delivery Room Air Room Air Blood Pressure Mean: 96 Progress Note : Progress Note Patient had an unremarkable ER course. She had perihilar infiltrates noted on chest x-ray. Patient was placed on doxycycline for treatment of possible early or lingering pneumonia. She was instructed to follow up closely. See discharge instructions for our discharge conversation. ECG Initial ECG Impression Date: Jul 24, 2017 Initial ECG Impression Time: 12:33 Initial ECG Rate: 58 Initial ECG Rhythm: Normal Sinus Initial ECG Intervals: Normal Initial ECG Impression: Normal Comment Normal sinus rhythm with no ST elevation or depression. No abnormal intervals or axis deviation. Diagnostic Imaging Diagonstic Imaging: Xray Plain Films/CT/US/NM/MRI: chest Comments Chest x-ray viewed by me and report reviewed. See report below: NAME: INDY BAH MED REC#: [id number] PT STATUS: REG ER : 1935 PHYSICIAN: KATJA ACUÑA MD ADMIT DATE: 07/24/17/ER Draft Date of Exam:07/24/17 CHEST 1 VIEW, AP/PA ONLY INDICATION: Cough and congestion. COMPARISON: 07/04/16 FINDINGS: Single view of the chest demonstrates hilar infiltrates with basilar atelectasis. There is no pneumothorax. The heart is prominent without pulmonary edema. IMPRESSION: Hilar infiltrate with bibasilar atelectasis. Followup recommended. Dictated on workstation # [id number] Dict: 07/24/17 1230 Trans: 07/24/17 1231 [place]ERARD[place] [id number] Interpreted by: GERALDO CONTRERAS Electronically signed by: Departure Impression Impression: Primary Impression: Syncope Qualified Codes: R55 - Syncope and collapse Additional Impression: Lung infiltrate Disposition: HOME, SELF-CARE Condition: Improved Departure-Patient Inst. Decision time for Depature: 14:55 Referrals: SIGIFREDO ROJAS DO (PCP) Primary Care Physician VINNIE GREWAL (Family) Primary Care Physician Patient Instructions: Syncope (Fainting) (DC) Add. Discharge Instructions: Complete your antibiotics as prescribed. Please follow-up with your primary care provider within the next week. I recommend a repeat chest x-ray in about 2 weeks to ensure improvement in the x-ray findings. Return to emergency room if symptoms worsen. Stay well-hydrated and eat a well-balanced diet. Gradually increase daily activities as tolerated. Avoid activities that might be dangerous should you have another episode of fainting until you follow up with your doctor. All discharge instructions reviewed with patient and/or family. Voiced understanding. Scripts Doxycycline Hyclate (Doxycycline Hyclate) 100 Mg Tablet 100 MG PO BID, #20 TAB Prov: KATJA ACUÑA MD 07/24/17 Copy Copies To 1: SIGIFREDO ROJAS JOSHUA T MD Jul 24, 2017 12:40
[2017-07-24 12:53] LABS: BASOPHILS # (AUTO) 0.1 10^3/uL (0.0-0.1); BASOPHILS % (AUTO) 1 % (0-10); EOSINOPHILS # (AUTO) 0.2 10^3/uL (0.0-0.3); EOSINOPHILS % (AUTO) 4 % (0-10); HEMATOCRIT 41 % (35-52); HEMOGLOBIN 14.1 G/DL (11.5-16.0); LYMPHOCYTES # (AUTO) 1.8 X 10^3 (1.0-4.0); LYMPHOCYTES % (AUTO) 35 % (12-44); MEAN CORPUSCULAR HEMOGLOBIN 32 PG (25-34); MEAN CORPUSCULAR HGB CONC 34 G/DL (32-36); MEAN CORPUSCULAR VOLUME 95 FL (80-99); MEAN PLATELET VOLUME 9.9 FL (7.4-10.4); MONOCYTES # (AUTO) 0.4 X 10^3 (0.0-1.0); MONOCYTES % (AUTO) 8 % (0-12); NEUTROPHILS # (AUTO) 2.6 X 10^3 (1.8-7.8); NEUTROPHILS % (AUTO) 51 % (42-75); PLATELET COUNT 265 10^3/uL (130-400); RED BLOOD COUNT 4.35 10^6/uL (4.35-5.85); RED CELL DISTRIBUTION WIDTH 12.9 % (10.0-14.5); WHITE BLOOD COUNT 5.2 10^3/uL (4.3-11.0)
[2017-07-24 13:03] LABS: INR 1.1 (0.8-1.4); PROTHROMBIN TIME PATIENT 13.9 SEC (12.2-14.7)
[2017-07-24 13:20] LABS: ALANINE AMINOTRANSFERASE 17 U/L (0-55); ALBUMIN 3.9 GM/DL (3.2-4.5); ALKALINE PHOSPHATASE 74 U/L (40-136); BILIRUBIN,TOTAL 0.3 MG/DL (0.1-1.0); BUN/CREATININE RATIO 15; CALCIUM 9.4 MG/DL (8.5-10.1); CARBON DIOXIDE 25 MMOL/L (21-32); CHLORIDE 106 MMOL/L (98-107); CREATININE SERUM 0.79 MG/DL (0.60-1.30); GFR ESTIMATED > 60; GLUCOSE 98 MG/DL (70-105); MAGNESIUM 2.3 MG/DL (1.8-2.4); POTASSIUM 4.4 MMOL/L (3.6-5.0); SODIUM 140 MMOL/L (135-145); TOTAL PROTEIN 6.4 GM/DL (6.4-8.2)
[2017-07-24 13:27] LABS: MYOGLOBIN SERUM 50.7 NG/ML (10.0-92.0)
[2017-07-24 13:40] LABS: FREE T4 (FREE THYROXINE) 1.09 NG/DL (0.70-1.48)
[2017-07-24] MEDS ORDERED: DOXY100T2 PO (14:57)
[2017-07-24 15:21] VITALS: BP 163/94
== END 2017-07-24 15:21 | disposition home or self-care (01) ==
LOC: EDUNIT# 10:31 → ER 10:32
DX: R55 Syncope and collapse (principal); R91.8 Other nonspecific abnormal finding of lung field; E03.9 Hypothyroidism, unspecified; Z87.01 Personal history of pneumonia (recurrent); Z90.49 Acquired absence of other specified parts of digestive tract; Z90.89 Acquired absence of other organs; Z90.710 Acquired absence of both cervix and uterus
CPT/HCPCS: 36415; 71045; 80053; 81000; 83735; 83874; 84439; 84443; 84484; 85025; 85610; 85730; 93005; 93041

== ENCOUNTER → 2017-08-12 | Outpatient (CLI) | payer MEDICARE, OTHER ==
[~2017-08-12] MED LIST changes: +DOXY100T2 PO
--- NOTE | 2017-08-12 14:42 | Diagnostic Imaging Report ---
Indication: Routine screening. Comparison is made with prior study from 04/19/2016 at 01/04/2014. The current study was also evaluated with a Computer Aided Detection (CAD) system. Both breasts are markedly dense, limiting the sensitivity of mammography. There is a cluster of microcalcifications in the upper outer aspect of the left breast at mid depth, appearing increased since the mammogram from 2015. Additional views are recommended. There are retroareolar benign calcifications on the left, stable. No mass is detected. Axilla are unremarkable. Impression: BI-RADS zero Left breast calcifications. Additional views are recommended. ACR BI-RADS Category 0: Incomplete. (Needs additional imaging evaluation). Result letter will be mailed to the patient. Note: At least 10% of breast cancer is not imaged by mammography. Dictated by: Dictated on workstation # [id number]
== END ==
LOC: RAD 13:52
PROVIDERS: ATTEND Nurse Practitioner Family
DX: Z12.31 Encounter for screening mammogram for malignant neoplasm of breast (principal); R92.1 Mammographic calcification found on diagnostic imaging of breast
CPT/HCPCS: 77067

== ENCOUNTER → 2017-09-02 | Outpatient (CLI) | payer MEDICARE, OTHER ==
--- NOTE | 2017-09-02 19:01 | Diagnostic Imaging Report ---
INDICATION: Left breast calcifications. Patient presents for additional views. COMPARISON: Comparison is made with recent screening study from 08/12/2017 as well as mammogram from 04/19/2016. The patient returned, and magnification CC and mediolateral view as well as a conventional 90 degree 3D lateral view was performed. The current study was also evaluated with a Computer Aided Detection (CAD) system. FINDINGS: There is a cluster of microcalcifications in the upper and outer aspect of the left breast mid depth. No significant pleomorphism is seen. There is some linearity of the calcifications. No associated soft tissue mass is detected. There are other benign calcifications more anteriorly in the left breast. IMPRESSION: Emerging cluster of microcalcifications in the upper-outer left breast mid depth when compared with prior mammogram. Tissue sampling is recommended. This would be amenable to stereotactic approach. Findings and recommendations were discussed with the patient at the time of the exam. ACR BI-RADS Category 4: Suspicious abnormality. Result letter will be mailed to the patient. Note: At least 10% of breast cancer is not imaged by mammography. Dictated by: Dictated on workstation # [id number]
== END ==
LOC: RAD 09:07
PROVIDERS: ATTEND Nurse Practitioner Family
DX: R92.0 Mammographic microcalcification found on diagnostic imaging of breast (principal)

== ENCOUNTER → 2017-10-06 | Outpatient (CLI) | payer MEDICARE, OTHER ==
[2017-09-30 09:27] VITALS: BP 118/62
[~2017-10-06] VITALS: Ht 160 cm; Wt 59.4 kg
[~2017-10-06] MED LIST changes: +LIDOCAINE 1% INJ 20 ML 20 ML VIAL INJ ONE; +LIDOCAINE 1% INJ 50 ML (XYLOCAINE) VIAL IJ ONE; +LIDOCAINE 1% INJ 50 ML (XYLOCAINE) VIAL ONE
[2017-10-06 14:03] VITALS: BP 112/69
--- NOTE | 2017-10-06 15:57 | Diagnostic Imaging Report ---
INDICATION: Left breast calcifications. Patient presents for stereotactic biopsy. TECHNIQUE: The patient was brought to the stereotactic suite. The breast was positioned in a lateral medial position. The calcifications of the left breast were stereotactically targeted. The left breast was then prepped and draped in the usual sterile fashion. A small amount of 1% lidocaine was utilized for local anesthesia. A total of four core biopsies was made of the calcifications in the outer left breast utilizing a vacuum-assisted device and an 8 gauge needle. Followup imaging of the samples does show multiple calcifications within samples #2 and #3. A clip was deployed. Hemostasis was obtained using manual compression. Followup mammographic imaging does show a clip in the outer left breast at mid depth. IMPRESSION: Successful vacuum assisted stereotactic biopsy of left breast calcifications. Pathology results are currently pending. Dictated by: Dictated on workstation # [id number]
== END ==
LOC: RAD 09-30 09:15
PROVIDERS: ATTEND Nurse Practitioner Family
DX: C50.812 Malignant neoplasm of overlapping sites of left female breast (principal)
CPT/HCPCS: 19081

== ENCOUNTER → 2018-08-18 | Outpatient (CLI) | payer MEDICARE, OTHER ==
[~2018-08-18] MED LIST changes: -LIDOCAINE 1% INJ 20 ML 20 ML VIAL INJ ONE; -LIDOCAINE 1% INJ 50 ML (XYLOCAINE) VIAL IJ ONE; -LIDOCAINE 1% INJ 50 ML (XYLOCAINE) VIAL ONE
--- NOTE | 2018-08-18 21:28 | Diagnostic Imaging Report ---
INDICATION: Left breast carcinoma, status post lumpectomy. Study is performed for followup. Correlation is made with prior mammogram from 10/06/2017, 09/02/2017 as well as 08/12/2017. 2-D and 3-D bilateral diagnostic mammography was performed with a Computer Aided Detection (CAD) system. FINDINGS: Both breasts are heterogeneously dense, limiting the sensitivity of mammography. Previously noted microcalcifications in the left breast are no longer visualized and have been surgically removed. No new mass or malignant appearing microcalcifications are seen. There are occasional benign calcifications present. Axillae are unremarkable. IMPRESSION: Postsurgical changes on the left. No mammographic features suspicious for malignancy are identified. ACR BI-RADS Category 2: Benign findings. Result letter will be mailed to the patient. Note: At least 10% of breast cancer is not imaged by mammography. Dictated by: Dictated on workstation # [id number]
== END ==
LOC: RAD 12:31
PROVIDERS: ATTEND Nurse Practitioner Family
DX: D05.12 Intraductal carcinoma in situ of left breast (principal); Z90.12 Acquired absence of left breast and nipple
CPT/HCPCS: 77066

== ENCOUNTER → 2018-10-27 | Outpatient (CLI) | payer MEDICARE, OTHER ==
[~2018-10-27] MED LIST changes: +CATHETER FLUSH 10 ML SYR IV PRN; +HOLD METFORMIN - RECEIVED CONTRAST 20 ML VIAL IV SCH; +IOHEXOL 350 MG/ML 100 ML (OMNIPAQUE 350) VIAL IV ONE
[2018-10-27 08:36] LABS: BUN/CREATININE RATIO 11; CREATININE SERUM 0.79 MG/DL (0.60-1.30); GFR ESTIMATED > 60
--- NOTE | 2018-10-27 10:46 | Diagnostic Imaging Report ---
PROCEDURE: CT chest with contrast only. TECHNIQUE: Multiple contiguous axial images were obtained through the chest after administration of intravenous contrast. Auto Exposure Controls were utilized during the CT exam to meet ALARA standards for radiation dose reduction. INDICATION: Nocturnal hypoxemia and congestion. Correlation is made with prior CT chest from 09/09/2016. FINDINGS: No axillary lymphadenopathy is seen. No definite hilar or mediastinal lymphadenopathy is detected. No pericardial or pleural fluid is identified. Previously noted bronchiectatic and fibrotic changes bilaterally are again noted. These appear to involve the inferior aspects of the upper lobes. There are also some mild fibrotic changes in right middle lobe and lingula. Tiny nodular densities are noted on today's study particularly in the right lower lobe. Subpleural nodule posteriorly is seen measuring 4 mm, image 20. 5 mm nodule right lower lobe is noted, image 21. Several tiny nodular densities posterior laterally in the right lower lobe image 27 are seen. There is a nodule on image 29 in the posterior lateral right lower lobe measuring 2 mm. Left lung appears to be clear. Bony structures are nonacute. IMPRESSION: Stable chronic changes when compared with examination from 2 years earlier. There is some minimal nodularity that has developed in the right lower lobe which may be on an infectious/inflammatory basis. Continued close followup and repeat study in 6 months is recommended to confirm stability. Dictated by: Dictated on workstation # [id number]
== END ==
LOC: RAD 08:06
PROVIDERS: ATTEND Nurse Practitioner Family
DX: G47.34 Idiopathic sleep related nonobstructive alveolar hypoventilation (principal); G47.50 Parasomnia, unspecified; G47.33 Obstructive sleep apnea (adult) (pediatric); G47.10 Hypersomnia, unspecified; J47.9 Bronchiectasis, uncomplicated
CPT/HCPCS: 36415; 71260; 82565; 84520

== ENCOUNTER → 2019-05-21 | Outpatient (CLI) | payer MEDICARE, OTHER ==
[~2019-05-21] MED LIST changes: -CATHETER FLUSH 10 ML SYR IV PRN; -HOLD METFORMIN - RECEIVED CONTRAST 20 ML VIAL IV SCH; -IOHEXOL 350 MG/ML 100 ML (OMNIPAQUE 350) VIAL IV ONE
--- NOTE | 2019-05-21 16:01 | Diagnostic Imaging Report ---
INDICATION: Cough. TIME OF EXAM: 03:42 p.m. Correlation is made with prior chest from 11/17/2017. FINDINGS: Heart size is stable. There are some chronic opacities in both lungs. On the right, this is in the perihilar region. On the left, this is along the left heart border. This is similar to prior exam. No new infiltrate is seen. No effusion or pneumothorax is detected. IMPRESSION: Stable chronic parenchymal opacities when compared with study from November 2017. No new abnormality is detected. Dictated by: Dictated on workstation # [id number]
== END ==
LOC: RAD 15:19
PROVIDERS: ATTEND Internal Medicine Pulmonary Disease
DX: R91.8 Other nonspecific abnormal finding of lung field (principal); R05 Cough
CPT/HCPCS: 71046

== ENCOUNTER → 2019-08-28 | Outpatient (CLI) | payer MEDICARE, OTHER ==
[~2019-08-28] MED LIST changes: -AZIT500T5 PO; +AZIT500T9 PO
--- NOTE | 2019-08-28 14:35 | Diagnostic Imaging Report ---
INDICATION: Screening. The current study was also evaluated with a Computer Aided Detection (CAD) system. 3-D Tomographic imaging was also performed. Comparison made with prior examination from 08/18/2018, 10/06/2017, 08/12/2017, and 04/19/2016. FINDINGS: The fibroglandular tissue is heterogeneously dense bilaterally. There are benign-type calcifications in both breasts. There is no dominant mass, spiculated lesion, or suspicious calcification identified. Skin, nipples, and axillae are unremarkable. IMPRESSION: Benign. ACR BI-RADS Category 2: Benign findings. Result letter will be mailed to the patient. Note: At least 10% of breast cancer is not imaged by mammography. Dictated by: Dictated on workstation # [id number]
== END ==
LOC: RAD 14:05
PROVIDERS: ATTEND Nurse Practitioner Community Health
DX: Z12.31 Encounter for screening mammogram for malignant neoplasm of breast (principal)
CPT/HCPCS: 77067

== ENCOUNTER → 2020-09-02 | Outpatient (CLI) | payer MEDICARE, OTHER ==
--- NOTE | 2020-09-03 10:10 | Diagnostic Imaging Report ---
Indication: Routine screening. Comparison is made with prior mammogram 08/28/2019 and 08/18/2018. 2-D and 3-D bilateral screening mammography was performed with CAD. Both breasts remain heterogeneously dense, limiting the sensitivity of mammography. There are benign calcifications. No mass or malignant appearing microcalcifications are seen. Axillae are unremarkable. IMPRESSION: BI-RADS Category 2 No mammographic features suspicious for malignancy are identified. ACR BI-RADS Category 2: Benign findings. Result letter will be mailed to the patient. Note: At least 10% of breast cancer is not imaged by mammography. Dictated by: Dictated on workstation # [id number]
== END ==
LOC: RAD 15:06
PROVIDERS: ATTEND Nurse Practitioner Community Health
DX: Z12.31 Encounter for screening mammogram for malignant neoplasm of breast (principal)
CPT/HCPCS: 77063; 77067

== ENCOUNTER 2020-09-06 10:25 | Emergency (ER) | payer MEDICARE, OTHER ==
[~2020-09-06] VITALS: Ht 160 cm; Wt 55.8 kg
--- NOTE | 2020-09-06 11:19 | ED Lower Extremity ---
General Chief Complaint: Lower Extremity Stated Complaint: L KNEE PAIN Nursing Triage Note: PT AMB TO [facility] 7 WITH COMPLAINT OF LEFT KNEE PAIN AND SWELLING. WAS SENT [facility] BY [facility] FOR FURTHER EVALUATION. STATES HAD A JOINT INJECTION ON TUESDAY BY SOREN HALE. Nursing Sepsis Screen: No Definite Risk Source: patient Exam Limitations: no limitations History of Present Illness Date Seen by Provider: Sep 06, 2020 Time Seen by Provider: 11:03 Initial Comments Patient presents ER by private conveyance from home with chief complaint that she has had swelling and severe pain and difficulty walking on her left knee after having a injection by Soren Hale 2 days ago on . She had steroids injected would like she is had several times in the past and usually it works very well for her but this time her pain has increased. She has history of arthritis but no scopes or surgeries on her knees. She is no having any weakness numbness tingling history of peripheral arterial disease or trauma that is new to her knee. She checks her temperature daily and has had no fevers or chills. She went to urgent care and they told her they were concerned she might need her knee tapped for possible infection. Allergies and Home Medications Allergies Coded Allergies: No Known Drug Allergies (Unverified , 07/04/16) Home Medications Ascorbate Calcium 500 Mg Tablet, 500 MG PO DAILY, (Reported) Aspirin/Acetaminophen/Caffeine 1 Each Tablet, 1 TAB PO BID PRN for PAIN, (Reported) Azithromycin 500 Mg Tablet, 500 MG PO DAILY Prescribed by: NESSA BEDOLLA on 07/08/16 1002 Calcium Carbonate/Vitamin D3 1 Each Tablet, 1 TAB PO DAILY, (Reported) Cefdinir 300 Mg Capsule, 300 MG PO BID Prescribed by: NESSA BEDOLLA on 07/08/16 1002 Cetirizine HCl 10 Mg Capsule, 10 MG PO DAILY PRN for ALLERGIES, (Reported) Cholecalciferol (Vitamin D3) 1,000 Unit Capsule, 1,000 UNIT PO DAILY, (Reported) Doxycycline Hyclate 100 Mg Tablet, 100 MG PO BID Prescribed by: KATJA WALKER on 07/24/17 1457 Fluticasone Propionate 16 Gm [place].susp, 2 SPRAYS NS DAILY, (Reported) Hydrocodone/Acetaminophen 1 Each Tablet, 1 TAB PO Q6H PRN for PAIN-MODERATE (5- 7) Prescribed by: LORETTA HUNT on 09/06/20 1252 Levothyroxine Sodium 50 Mcg Tablet, 50 MCG PO DAILY, (Reported) Meloxicam 15 Mg Tablet, 15 MG PO DAILY Prescribed by: LORETTA HUNT on 09/06/20 1249 Mu-Vits-Min Th/Lycopene/Lutein 1 Each Tablet, 1 TAB PO DAILY, (Reported) [place]-3 Fatty Acids/Fish Oil 1 Each Capsule, 1,000 MG PO DAILY, (Reported) Omeprazole 20 Mg Tablet.dr, 20 MG PO DAILY Prescribed by: NESSA BEDOLLA on 07/08/16 1002 Ondansetron 8 Mg Tab.rapdis, 8 MG PO Q6H PRN for NAUSEA Prescribed by: NESSA BEDOLLA on 07/08/16 1002 Propylene Glycol 10 Ml Drops, 1 DROP OU Q4H PRN for DRY EYES, (Reported) Vitamin B Complex 1 Each Capsule, 1 CAP PO DAILY, (Reported) Patient Home Medication List Home Medication List Reviewed: Yes Review of Systems Constitutional: No chills, No fever EENTM: No ear discharge, No ear pain Respiratory: No cough, No short of breath Cardiovascular: No chest pain, No edema, No Hx of Intervention Gastrointestinal: No abdominal pain, No nausea Genitourinary: No discharge, No dysuria : No Control/STD Prophylaxis: None Musculoskeletal: see HPI; No back pain; joint pain All Other Systems Reviewed Negative Unless Noted: Yes Past Idqmqfb-Datgqi-Wqptum Hx Patient Social History Alcohol Use: Rarely Uses Smoking Status: Never a Smoker Recent Infectious Disease Expo: No Recent Hopitalizations: No Immunizations Up To Date Tetanus Booster (TDap): Unknown Date of Pneumonia Vaccine: Jul 11, 2012 Date of Influenza Vaccine: Apr 26, 2016 Seasonal Allergies Seasonal Allergies: Yes (Receives allergy injections) Past Medical History Surgeries: Yes (TONSILLECTOMY 1948 HYSTERECTOMY 1985) Appendectomy Respiratory: Yes (HX OF SEVERAL PNEUMONIA'S ) Pneumonia Currently Using CPAP: No Currently Using BIPAP: No Cardiac: No Neurological: No Reproductive Disorders: No Genitourinary: No Gastrointestinal: No Musculoskeletal: Yes (JOINT INJECTION) Arthritis Endocrine: Yes Hypothyroidsim Cancer: No Psychosocial: No Integumentary: No Blood Disorders: No Family Medical History Neoplasm 19 MOTHER (BRAIN TUMOR) Parkinson's disease 19 FATHER G8 SISTER Physical Exam Vital Signs Vital Signs - First Documented 09/06/20 10:32 Pulse 90 Resp 16 B/P (MAP) 136/82 (100) Pulse Ox 97 O2 Delivery Room Air Capillary Refill : Less Than 3 Seconds Height, Weight, BMI Height: 5'3.00" Weight: 131lbs. 0.0oz. [id number]; 21.00 BMI Method:Stated General Appearance: WD/WN, no apparent distress HEENT: PERRL/EOMI, pharynx normal Neck: full range of motion, normal inspection Cardiovascular: normal peripheral pulses, regular rate, rhythm Respiratory: no respiratory distress, no accessory muscle use Knees: right knee non-tender, right knee normal inspection, right knee normal range of motion, right knee no evidence of injury; left knee pain, left knee soft tissue tenderness, left knee swelling Procedures/Interventions Additional Procedures: Arthrocentesis Aspirating Progress Left knee using proper sterile technique we cleaned the skin using alcohol and then iodine. We allowed the iodine to dry for at least 2 minutes. Then we used a 25-gauge 1-1/2 inch needle and accessed using a medial anterior approach. Were unable to aspirate on 2 attempts so we switched to a 23-gauge 1-1/2 inch needle and were still unable to aspirate any fluid. A sterile bandage was applied and patient tolerated procedure well. Progress/Results/Core Measures Results/Orders Lab Results Laboratory Tests Test 09/06/20 10:42 Range/Units White Blood Count 10.3 4.3-11.0 10^3/uL Red Blood Count 4.51 3.80-5.11 10^6/uL Hemoglobin 14.5 11.5-16.0 g/dL Hematocrit 43 35-52 % Mean Corpuscular Volume 95 80-99 fL Mean Corpuscular Hemoglobin 32 25-34 pg Mean Corpuscular Hemoglobin Concent 34 32-36 g/dL Red Cell Distribution Width 12.4 10.0-14.5 % Platelet Count 230 130-400 10^3/uL Mean Platelet Volume 11.0 9.0-12.2 fL Immature Granulocyte % (Auto) 0 % Neutrophils (%) (Auto) 81 H 42-75 % Lymphocytes (%) (Auto) 12 12-44 % Monocytes (%) (Auto) 6 0-12 % Eosinophils (%) (Auto) 0 0-10 % Basophils (%) (Auto) 0 0-10 % Neutrophils # (Auto) 8.4 H 1.8-7.8 10^3/uL Lymphocytes # (Auto) 1.3 1.0-4.0 10^3/uL Monocytes # (Auto) 0.6 0.0-1.0 10^3/uL Eosinophils # (Auto) 0.0 0.0-0.3 10^3/uL Basophils # (Auto) 0.0 0.0-0.1 10^3/uL Immature Granulocyte # (Auto) 0.0 0.0-0.1 10^3/uL Sodium Level 129 L 135-145 MMOL/L Potassium Level 4.2 3.6-5.0 MMOL/L Chloride Level 95 L 98-107 MMOL/L Carbon Dioxide Level 24 21-32 MMOL/L Anion Gap 10 5-14 MMOL/L Blood Urea Nitrogen 8 7-18 MG/DL Creatinine 0.80 0.60-1.30 MG/DL Estimat Glomerular Filtration Rate > 60 BUN/Creatinine Ratio 10 Glucose Level 122 H 70-105 MG/DL Calcium Level 9.3 8.5-10.1 MG/DL Corrected Calcium 8.9 8.5-10.1 MG/DL Total Bilirubin 0.7 0.1-1.0 MG/DL Aspartate Amino Transf (AST/SGOT) 30 5-34 U/L Alanine Aminotransferase (ALT/SGPT) 23 0-55 U/L Alkaline Phosphatase 84 40-136 U/L C-Reactive Protein High Sensitivity 4.05 H 0.00-0.50 MG/DL Total Protein 7.7 6.4-8.2 GM/DL Albumin 4.5 3.2-4.5 GM/DL My Orders Orders - LORETTA HUNT Blood Culture (09/06/20 11:13) Cbc With Automated Diff (09/06/20 11:13) Hs C Reactive Protein (09/06/20 11:13) Comprehensive Metabolic Panel (09/06/20 11:13) Hydrocodone/Apap 5/325 Tablet (Lortab 5 (09/06/20 11:30) Knee, Left, 3 Views (09/06/20 12:40) Medications Given in ED Current Medications Medications Dose Ordered Sig/Abdullahi Route Start Time Stop Time Status Last Admin Dose Admin Acetaminophen/ Hydrocodone Bitart 1 ea ONCE ONCE PO 09/06/20 11:30 09/06/20 11:31 DC 09/06/20 11:47 1 EA Vital Signs/I&O 09/06/20 10:32 Pulse 90 Resp 16 B/P (MAP) 136/82 (100) Pulse Ox 97 O2 Delivery Room Air Blood Pressure Mean: 100 Progress Progress Note #1: Time: 11:18 Progress Note Significant joint effusion. Plan to tap her check for crystals, cell count and blood culture and fluid culture. Labs including a CRP. Hydrocodone for pain. Progress Note #2: Time: 12:43 Progress Note After 3 attempts to aspirate any fluid we were successfully able to get into the joint space but could not get any more than a single drop of serosanguineous fluid. Patient feels that her pain is a little better after the hydrocodone. We will get a 3 view knee x-ray. CRP is 4. ESR is not available since the machine is broken. White count is normal. The leg does not appear erythematous, warm just having some mild left knee soft tissue swelling. Nonedematous. Suspect this is related to arthritis. She already received a dose of steroids so were going to give her an NSAID and have her follow-up with the orthopedic surgeon next week. Return precautions were given Diagnostic Imaging Diagonstic Imaging: Xray Plain Films/CT/US/NM/MRI: knee (Left) Comments NAME: INDY BAH MED REC#: [id number] PT STATUS: REG ER : 1935 PHYSICIAN: LORETTA HUNT MD ADMIT DATE: 09/06/20/ER Draft Date of Exam:09/06/20 KNEE, LEFT, 3 VIEWS Indication: Left knee pain and swelling. Comparison: None. Discussion: Three views of the left knee were obtained. Moderately advanced degenerative disease is noted affecting all 3 compartments. Small effusion. No fracture or dislocation. Soft tissues are unremarkable. Alignment is anatomic. Impression: 1. Moderately advanced left knee degenerative disease. No acute abnormality. Dictated on workstation # [id number] Dict: 09/06/20 1315 Trans: 09/06/20 1346 [facility] [phone] Interpreted by: STELLA BELL MD Electronically signed by: Reviewed: Reviewed by Me Consults : Consulting Physician: SULAIMAN SAWYER MD Consults Notes Discussed the case and findings with Dr. Sawyer and that we were not able to collect any fluid from the synovial space. He agrees that if it does not look septic and that he does not think it sounds septic so he would just see the patient next week in the clinic. Departure Impression Primary Impression: Arthritis of left knee Disposition: 01 HOME, SELF-CARE Condition: Stable Departure-Patient Inst. Decision time for Depature: 12:45 Referrals: [facility] (PCP) Primary Care Physician EDGAR NGO (Family) Primary Care Physician SULAIMAN SAWYER MD Patient Instructions: Knee Pain (DC), Osteoarthritis (DC) Add. Discharge Instructions: I suspect the swelling around your knee today is related to osteoarthritis. I do not see any evidence of an infection. We did gather some blood cultures which will grow out any bacteria over the next 2 days. Tylenol 1000 mg every 8 hours as necessary for pain. Mobic 10 mg daily for the next 2 weeks. If you have stomach pain or chest pain related to the Mobic then stop taking it and contact your primary care doctor. If you have severe breakthrough pain keeping you from being functional then you may take 1/2 to 1 tablet of hydrocodone every 6 hours as necessary. Do not expect to be pain-free for the next 1 to 2 weeks. Tuesday morning call Dr. Sawyer's office and request a follow-up appointment for reexamination of your knee. Return to the ER promptly if you see redness going up your leg or you experience fever or other worrisome symptoms. All discharge instructions reviewed with patient and/or family. Voiced understanding. Scripts Hydrocodone/Acetaminophen (Hydrocodone-Acetamin 5-325 mg) 1 Each Tablet 1 TAB PO Q6H PRN for PAIN-MODERATE (5-7) for 7 Days, #12 TAB 0 Refills Prov: LORETTA HUNT 09/06/20 Meloxicam (Mobic) 15 Mg Tablet 15 MG PO DAILY for 14 Days, #14 TAB 0 Refills Prov: LORETTA HUNT 09/06/20 Copy Copies To 1: SULAIMAN SAWYER MD, TITUS J Sep 06, 2020 11:18
[2020-09-06 11:27] LABS: ALBUMIN 4.5 GM/DL (3.2-4.5); CHLORIDE 95 MMOL/L (98-107); POTASSIUM 4.2 MMOL/L (3.6-5.0); SODIUM 129 MMOL/L (135-145)
[2020-09-06 11:28] LABS: CALCIUM 9.3 MG/DL (8.5-10.1)
[2020-09-06 11:29] LABS: GLUCOSE 122 MG/DL (70-105); TOTAL PROTEIN 7.7 GM/DL (6.4-8.2)
[2020-09-06] MEDS ORDERED: HYDROcodone/APAP 5 MG/325 MG (LORTAB) TAB PO ONE (11:30)
[2020-09-06 11:31] LABS: BILIRUBIN,TOTAL 0.7 MG/DL (0.1-1.0); CARBON DIOXIDE 24 MMOL/L (21-32)
[2020-09-06 11:33] LABS: ALKALINE PHOSPHATASE 84 U/L (40-136); GFR ESTIMATED > 60
[2020-09-06 11:34] LABS: BUN/CREATININE RATIO 10
[2020-09-06 11:36] LABS: ALANINE AMINOTRANSFERASE 23 U/L (0-55)
[2020-09-06 12:02] LABS: BASOPHILS % (AUTO) 0 % (0-10); EOSINOPHILS % (AUTO) 0 % (0-10); HEMATOCRIT 43 % (35-52); HEMOGLOBIN 14.5 g/dL (11.5-16.0); LYMPHOCYTES # (AUTO) 1.3 10^3/uL (1.0-4.0); LYMPHOCYTES % (AUTO) 12 % (12-44); MEAN CORPUSCULAR HEMOGLOBIN 32 pg (25-34); MEAN CORPUSCULAR HGB CONC 34 g/dL (32-36); MEAN CORPUSCULAR VOLUME 95 fL (80-99); MONOCYTES # (AUTO) 0.6 10^3/uL (0.0-1.0); MONOCYTES % (AUTO) 6 % (0-12); NEUTROPHILS # (AUTO) 8.4 10^3/uL (1.8-7.8); NEUTROPHILS % (AUTO) 81 % (42-75); PLATELET COUNT 230 10^3/uL (130-400); WHITE BLOOD COUNT 10.3 10^3/uL (4.3-11.0)
[2020-09-06] MEDS ORDERED: ACHD5005 PO (12:49)
[2020-09-06] MEDS ORDERED: MELO15TA14 PO (12:49)
--- NOTE | 2020-09-06 13:46 | Diagnostic Imaging Report ---
Indication: Left knee pain and swelling. Comparison: None. Discussion: Three views of the left knee were obtained. Moderately advanced degenerative disease is noted affecting all 3 compartments. Small effusion. No fracture or dislocation. Soft tissues are unremarkable. Alignment is anatomic. Impression: 1. Moderately advanced left knee degenerative disease. No acute abnormality. Dictated by: Dictated on workstation # [id number]
[2020-09-06 14:01] VITALS: BP 117/73
== END 2020-09-06 13:59 | disposition home or self-care (01) ==
LOC: EDUNIT# 10:25 → ER 10:28
DX: M13.862 Other specified arthritis, left knee (principal); E03.9 Hypothyroidism, unspecified; Z80.8 Family history of malignant neoplasm of other organs or systems; Z79.890 Hormone replacement therapy; Z79.82 Long term (current) use of aspirin
CPT/HCPCS: 36415; 73562; 80053; 85025; 86141; 87040

== ENCOUNTER → 2020-12-09 | Outpatient (CLI) | payer MEDICARE, OTHER ==
[~2020-12-09] MED LIST changes: +ACHD5005 PO; +MELO15TA14 PO
== END ==
LOC: CARD 14:30
PROVIDERS: ATTEND Pediatrics
DX: I08.3 Combined rheumatic disorders of mitral, aortic and tricuspid valves (principal); I87.8 Other specified disorders of veins
CPT/HCPCS: 93306

== ENCOUNTER → 2021-04-28 | Outpatient (CLI) | payer MEDICARE, OTHER ==
--- NOTE | 2021-04-28 16:40 | Diagnostic Imaging Report ---
EXAMINATION: CT chest without contrast (high resolution) TECHNIQUE: Prone and supine non-contrast high resolution CT images of the chest were obtained in inspiration and expiration. All CT scans use one or more of the following dose optimizing techniques: automated exposure control, MA and/or KvP adjustment based on patient size and exam type or iterative reconstruction. HISTORY: BRONCHIECTASIS COMPARISON: 10/27/2018 FINDINGS: Thyroid: The thyroid is normal. Mediastinum: Heart size is normal without significant pericardial effusion. Calcifications of the aorta and coronary vessels. Thoracic aorta is normal in caliber. No suspicious lymphadenopathy. Lungs and airways: There are scattered reticulonodular and tree-in-bud opacities seen throughout both lungs. These do not resolve on prone images. There is mild air trapping seen within the lungs on expiratory images. There is redemonstrated scarring and traction bronchiectasis seen within the right middle lobe and lingula. No significant subpleural reticulation or honeycombing. No pleural effusion or pneumothorax. Upper abdomen: The subphrenic structures are normal. Musculoskeletal: Degenerative changes of the spine without suspicious osseous lesion or compression fracture. IMPRESSION: 1. Redemonstrated reticulonodular opacities seen throughout both lungs with scarring and bronchiectasis seen within the right middle lobe and lingula. These findings suggest atypical infection such as mycobacterium avium complex and Lady [place] syndrome. Dictated by: Dictated on workstation # [id number]
== END ==
LOC: RAD 14:54
PROVIDERS: ATTEND Internal Medicine Pulmonary Disease
DX: J47.9 Bronchiectasis, uncomplicated (principal); J98.4 Other disorders of lung; R91.8 Other nonspecific abnormal finding of lung field
CPT/HCPCS: 71250